=== PATIENT | female | born 1930 | race Caucasian/White ===

== ENCOUNTER 2016-11-25 17:42 | Inpatient (IN) | payer MEDICARE ==
[2016-11-25] MEDS ORDERED: methylPREDNISolone SOD SUCCI 125 MG/2 ML VIAL IV STA (18:05)
[2016-11-25] MEDS ORDERED: IPRATROPIUM-ALBUTEROL 3 ML NEB INHALATION STA (18:05)
--- NOTE | 2016-11-25 18:15 | ED ---
General Adult HPI - General Source: patient, EMS, RN notes reviewed Mode of arrival: EMS Limitations: no limitations <Carlos Corbett - Last Filed: 11/25/16 19:44> <Giovanni Bustamante - Last Filed: 11/25/16 20:08> - General Chief complaint: Shortness of Breath Stated complaint: DESTINEE Time Seen by Provider: 11/25/16 17:44 - History of Present Illness Initial comments: Patient 86-year-old female who presents emergency room today by EMS, the chief complaint of shortness of breath. She does admit that she woke up this morning feeling like this. She states as the day has gone on it seems to have gotten worse. She does admit that EMS did give her a breathing treatment on her way here which did resolve some of the symptoms. She denies any other complaints or associated symptoms. Patient denies any recent fever, chills, shortness of breath, chest pain, back pain, abdominal pain, nausea or vomiting, numbness or tingling, dysuria or hematuria, constipation or diarrhea, headaches or visual changes, or any other complaints. (Carlos Corbett) - Related Data Home Medications Medication Instructions Recorded Confirmed ALPRAZolam [Xanax] 0.5 mg PO DAILY 11/25/16 11/25/16 Carvedilol [Coreg] 6.25 mg PO BID 11/25/16 11/25/16 Furosemide [Lasix] 20 mg PO DAILY 11/25/16 11/25/16 Lisinopril [Zestril] 2.5 mg PO DAILY 11/25/16 11/25/16 Potassium Chloride [Klor-Con 20] 20 meq PO DAILY 11/25/16 11/25/16 Sertraline HCl [Zoloft] 50 mg PO DAILY 11/25/16 11/25/16 Simvastatin [Zocor] 20 mg PO HS 11/25/16 11/25/16 Warfarin [Coumadin] 3 mg PO HS 11/25/16 11/25/16 rOPINIRole HCL [Requip] 0.25 mg PO DAILY 11/25/16 11/25/16 Allergies Allergy/AdvReac Type Severity Reaction Status Date / Time Penicillins AdvReac BURNING Verified 11/25/16 18:32 THROAT Review of Systems ROS Other: All systems not noted in ROS Statement are negative. <Carlos Corbett - Last Filed: 11/25/16 19:44> ROS Other: All systems not noted in ROS Statement are negative. <Giovanni Bustamante - Last Filed: 11/25/16 20:08> ROS Statement: Those systems with pertinent positive or pertinent negative responses have been documented in the HPI. Past Medical History Past Medical History: COPD Additional Past Medical History / Comment(s): pacemaker History of Any Multi-Drug Resistant Organisms: None Reported Additional Past Surgical History / Comment(s): L hip replacement Past Psychological History: No Psychological Hx Reported Smoking Status: Current every day smoker Past Alcohol Use History: Occasional Past Drug Use History: None Reported <Carlos Corbett - Last Filed: 11/25/16 19:44> General Exam Limitations: no limitations <Carlos Corbett - Last Filed: 11/25/16 19:44> General appearance: alert, in no apparent distress, anxious, in distress Head exam: Present: atraumatic, normocephalic, normal inspection Eye exam: Present: normal appearance, PERRL, EOMI. Absent: scleral icterus, conjunctival injection, periorbital swelling ENT exam: Present: normal exam, mucous membranes moist Neck exam: Present: normal inspection. Absent: tenderness, meningismus, lymphadenopathy Respiratory exam: Present: normal lung sounds bilaterally, wheezes, decreased breath sounds, prolonged expiratory. Absent: respiratory distress, rales, rhonchi, stridor Cardiovascular Exam: Present: regular rate, normal rhythm, normal heart sounds. Absent: systolic murmur, diastolic murmur, rubs, gallop, clicks GI/Abdominal exam: Present: soft, normal bowel sounds. Absent: distended, tenderness, guarding, rebound, rigid Extremities exam: Present: normal inspection, full ROM, normal capillary refill. Absent: tenderness, pedal edema, joint swelling, calf tenderness Back exam: Present: normal inspection Neurological exam: Present: alert, oriented X3, CN II-XII intact Psychiatric exam: Present: normal affect, normal mood Skin exam: Present: warm, dry, intact, normal color. Absent: rash <Giovanni Bustamante - Last Filed: 11/25/16 20:08> - General Exam Comments Initial Comments: General: The patient is awake and alert. Eye: Pupils are equal, round and reactive to light, extra-ocular movements are intact. No nystagmus. There is normal conjunctiva bilaterally. No signs of icterus. Ears, nose, mouth and throat: There are moist mucous membranes and no oral lesions. Neck: The neck is supple, there is no tenderness or JVD. Cardiovascular: There is a regular rate and rhythm. No murmur, rub or gallop is appreciated. Respiratory: Decreased breath sounds bilaterally. Mild distress with accessory muscle use. No stridor, rales, or rhonchi. Musculoskeletal: Normal ROM, no tenderness. Strength 5/5. Sensation intact. Pulses equal bilaterally 2+. Neurological: A&O x 3. CN II-XII intact, There are no obvious motor or sensory deficits. Coordination appears grossly intact. Speech is normal. Skin: Skin is warm and dry and no rashes or lesions are noted. Psychiatric: Cooperative, appropriate mood & affect, normal judgment. (Carlos Corbett) Course <Carlos Corbett - Last Filed: 11/25/16 19:44> <Giovanni Bustamante - Last Filed: 11/25/16 20:08> Vital Signs 11/25/16 11/25/16 11/25/16 17:46 17:54 18:19 Temperature 97.0 F L 98.0 F Pulse Rate 70 70 70 Respiratory 16 16 Rate Blood Pressure 152/62 150/60 O2 Sat by Pulse 92 L 90 L Oximetry 11/25/16 11/25/16 11/25/16 18:31 18:58 19:20 Temperature 98.0 F 98.2 F Pulse Rate 72 70 70 Respiratory 18 18 Rate Blood Pressure 150/60 118/63 O2 Sat by Pulse 98 96 Oximetry - Reevaluation(s) Reevaluation #1: 11/25/16 20:08 The patient still remained shortness of breath despite breathing treatments ( Giovanni Bustamante) EKG Findings - EKG Comments: EKG Findings:: EKG performed at 1939: Shows a ventricular paced rhythm with occasional PVC at 73 beats murmur. QRS 136. QT/QTc 476/524. No acute ST changes. <Carlos Corbett - Last Filed: 11/25/16 19:44> Medical Decision Making - Lab Data Result diagrams: 11/25/16 19:10 <Carlos Corbett - Last Filed: 11/25/16 19:44> - Lab Data Result diagrams: 11/25/16 19:10 11/25/16 19:10 - Radiology Data Radiology results: report reviewed (Chest x-rays positive for pneumonia), image reviewed <Giovanni Bustamante - Last Filed: 11/25/16 20:08> - Medical Decision Making 86 female to the ER with significant shortness of breath, active positive for pneumonia, positive fever, positive chest x-ray, white count of 16. Patient will be admitted for IV antibiotics IV resuscitation and monitoring her pulmonary status (Giovanni Bustamante) - Lab Data Lab Results 11/25/16 11/25/16 11/25/16 Range/Units 19:10 19:10 19:10 WBC 15.0 H (3.8-10.6) k/uL RBC 4.16 (3.80-5.40) m/uL Hgb 12.8 (11.4-16.0) gm/dL Hct 40.5 (34.0-46.0) % MCV 97.4 (80.0-100.0) fL MCH 30.8 (25.0-35.0) pg MCHC 31.6 (31.0-37.0) g/dL RDW 14.2 (11.5-15.5) % Plt Count 198 (150-450) k/uL Neutrophils % 86 % Lymphocytes % 6 % Monocytes % 6 % Eosinophils % 0 % Basophils % 0 % Neutrophils # 12.8 H (1.3-7.7) k/uL Lymphocytes # 0.9 L (1.0-4.8) k/uL Monocytes # 0.9 (0-1.0) k/uL Eosinophils # 0.0 (0-0.7) k/uL Basophils # 0.0 (0-0.2) k/uL PT (9.0-12.0) sec INR (<1.1) APTT (22.0-30.0) sec Sodium 137 (137-145) mmol/L Potassium 4.3 (3.5-5.1) mmol/L Chloride 103 (98-107) mmol/L Carbon Dioxide 26 (22-30) mmol/L Anion Gap 8 mmol/L BUN 24 H (7-17) mg/dL Creatinine 0.75 (0.52-1.04) mg/dL Est GFR (MDRD) Af Amer >60 (>60 ml/min/1.73 sqM) Est GFR (MDRD) Non-Af >60 (>60 ml/min/1.73 sqM) Glucose 125 H (74-99) mg/dL Calcium 8.8 (8.4-10.2) mg/dL Magnesium 2.1 (1.6-2.3) mg/dL Total Bilirubin 0.7 (0.2-1.3) mg/dL AST 34 (14-36) U/L ALT 37 (9-52) U/L Alkaline Phosphatase 81 (38-126) U/L Total Creatine Kinase 54 (30-135) U/L Total Protein 6.2 L (6.3-8.2) g/dL Albumin 3.5 (3.5-5.0) g/dL 11/25/16 Range/Units 19:10 WBC (3.8-10.6) k/uL RBC (3.80-5.40) m/uL Hgb (11.4-16.0) gm/dL Hct (34.0-46.0) % MCV (80.0-100.0) fL MCH (25.0-35.0) pg MCHC (31.0-37.0) g/dL RDW (11.5-15.5) % Plt Count (150-450) k/uL Neutrophils % % Lymphocytes % % Monocytes % % Eosinophils % % Basophils % % Neutrophils # (1.3-7.7) k/uL Lymphocytes # (1.0-4.8) k/uL Monocytes # (0-1.0) k/uL Eosinophils # (0-0.7) k/uL Basophils # (0-0.2) k/uL PT 73.3 H (9.0-12.0) sec INR 7.1 H* (<1.1) APTT 37.1 H (22.0-30.0) sec Sodium (137-145) mmol/L Potassium (3.5-5.1) mmol/L Chloride (98-107) mmol/L Carbon Dioxide (22-30) mmol/L Anion Gap mmol/L BUN (7-17) mg/dL Creatinine (0.52-1.04) mg/dL Est GFR (MDRD) Af Amer (>60 ml/min/1.73 sqM) Est GFR (MDRD) Non-Af (>60 ml/min/1.73 sqM) Glucose (74-99) mg/dL Calcium (8.4-10.2) mg/dL Magnesium (1.6-2.3) mg/dL Total Bilirubin (0.2-1.3) mg/dL AST (14-36) U/L ALT (9-52) U/L Alkaline Phosphatase (38-126) U/L Total Creatine Kinase (30-135) U/L Total Protein (6.3-8.2) g/dL Albumin (3.5-5.0) g/dL Critical Care Time Critical Care Time: Yes Total Critical Care Time: 31 <Giovanni Bustamante - Last Filed: 11/25/16 20:08> Disposition <Carlos Corbett - Last Filed: 11/25/16 19:44> <Giovanni Bustamante - Last Filed: 11/25/16 20:08> Clinical Impression: Community acquired pneumonia, Sepsis Disposition: ADMITTED IP TO THIS [facility] Condition: Poor Referrals: William Delgadillo MD [Primary Care Provider] - 1-2 days
--- NOTE | 2016-11-25 19:18 | XR ---
EXAMINATION TYPE: XR chest 2V DATE OF EXAM: 11/25/2016 6:59 PM COMPARISON: NONE HISTORY: Chest pressure TECHNIQUE: Frontal and lateral views of the chest are obtained. FINDINGS: Heart is enlarged. There is apparent aortic valve prosthesis. There is mild pulmonary beatrice estion. There is a left axillary pacemaker with the lead tips in the right ventricle. There are chest leads. There is minimal fluid in the fissures. Bony thorax is intact. IMPRESSION: Mild congestive heart failure. Moderately severe cardiomegaly.
[2016-11-25 19:28] LABS: Basophils % (A) 0 %; CH 30.7; CHCM 31.7; Eosinophils % (A) 0 %; HCT 40.5 % (34.0-46.0); HDW 2.52; HGB 12.8 gm/dL (11.4-16.0); Luc # (Auto) 0.39; Luc % (Auto) 3; Lymphocytes # (A) 0.9 k/uL (1.0-4.8); Lymphocytes % (A) 6 %; MCH 30.8 pg (25.0-35.0); MCHC 31.6 g/dL (31.0-37.0); MCV 97.4 fL (80.0-100.0); Mean Platelet Volume 7.7; Monocytes # (A) 0.9 k/uL (0-1.0); Monocytes % (A) 6 %; Neutrophils # (A) 12.8 k/uL (1.3-7.7); Neutrophils % (A) 86 %; RBC 4.16 m/uL (3.80-5.40); RDW 14.2 % (11.5-15.5); WBC (Perox) 14.48
[2016-11-25 19:37] LABS: ALT 37 U/L (9-52); AST 34 U/L (14-36); Alkaline Phosphatase 81 U/L (38-126); Anion Gap 8 mmol/L; Blood Urea Nitrogen 24 mg/dL (7-17); Calcium 8.8 mg/dL (8.4-10.2); Carbon Dioxide 26 mmol/L (22-30); Chloride 103 mmol/L (98-107); Glucose 125 mg/dL (74-99); Magnesium 2.1 mg/dL (1.6-2.3); Non-African American GFR(MDRD) >60 (>60 ml/min/1.73 sqM); Potassium 4.3 mmol/L (3.5-5.1); Sodium 137 mmol/L (137-145); Total Bilirubin 0.7 mg/dL (0.2-1.3); Total Protein 6.2 g/dL (6.3-8.2)
[2016-11-25 19:41] LABS: Partial Thromboplastin Time 37.1 sec (22.0-30.0)
[2016-11-25 19:42] LABS: Prothrombin Time 73.3 sec (9.0-12.0)
[2016-11-25] MEDS ORDERED: PNEUMONIA PROTOCOL UTILIZED 1 EACH MISC PO PRN (19:57)
[2016-11-25] MEDS ORDERED: LEVOFLOXACIN 750MG-D5W PMX 750 MG in DEXTROSE/WATER 1 150ML.BAG IVPB STA (19:57)
[2016-11-25] MEDS ORDERED: IPRATROPIUM-ALBUTEROL 3 ML NEB INHALATION PRN (19:57)
[2016-11-25] MEDS ORDERED: SODIUM CHLORIDE 0.9% 1,000 ML IV ONE (19:57)
[2016-11-25 20:01] LABS: INR 7.1 (<1.1)
[2016-11-25 20:04] LABS: Creatine Kinase MB 2.1 ng/mL (0.0-2.4)
[2016-11-25 20:13] LABS: Troponin I 0.159 ng/mL (0.000-0.034)
[2016-11-25] MEDS ORDERED: WARFARIN 3 MG TAB PO SCH (21:00)
[2016-11-25] MEDS: ATORVASTATIN 10 MG TAB PO SCH (23:18)
[2016-11-25] MEDS: CARVEDILOL 6.25 MG TAB PO SCH (23:18)
[2016-11-25] MEDS: ALPRAZolam 0.5 MG TAB PO SCH (23:18)
[2016-11-26 02:51] LABS: Troponin I 0.156 ng/mL (0.000-0.034)
[2016-11-26 07:06] LABS: Cholesterol 130 mg/dL (<200); HDL Cholesterol 48 mg/dL (40-60); Triglycerides 140 mg/dL (<150)
[2016-11-26 07:49] LABS: Creatine Kinase MB 2.4 ng/mL (0.0-2.4)
[2016-11-26 08:14] LABS: Troponin I 0.147 ng/mL (0.000-0.034)
[2016-11-26] MEDS ORDERED: ALPRAZolam 0.5 MG TAB PO SCH (09:00)
[2016-11-26] MEDS ORDERED: FUROSEMIDE 20 MG TAB PO SCH (09:00)
[2016-11-26] MEDS: POTASSIUM CHLORIDE ER 20 MEQ TAB.ER PO SCH (09:17)
[2016-11-26] MEDS: LISINOPRIL 2.5 MG TAB PO SCH (09:17)
[2016-11-26] MEDS: CARVEDILOL 6.25 MG TAB PO SCH ×2 (09:17→19:54)
[2016-11-26] MEDS: SERTRALINE 50 MG TAB PO SCH (09:18)
--- NOTE | 2016-11-26 10:31 | XR ---
EXAMINATION TYPE: XR chest 2V DATE OF EXAM: 11/26/2016 9:52 AM COMPARISON: NONE INDICATION: Pneumonia TECHNIQUE: Single frontal view of the chest is obtained. FINDINGS: The heart size is enlarged. The pulmonary vasculature is prominent. Diffuse increased lung opacity is present likely on the basis of alveolar infiltrate. Clinical correl ation recommended. IMPRESSION: 1. Correlate for developing congestive heart.
[2016-11-26] MEDS: ACETAMINOPHEN TAB 325 MG TAB PO PRN ×2 (11:47→16:41)
[2016-11-26 14:29] LABS: INR 4.9 (<1.1)
[2016-11-26] MEDS ORDERED: HYDROcodone/APAP 5-325MG 1 EACH TAB PO PRN (15:00)
[2016-11-26] MEDS ORDERED: TEMAZEPAM 15 MG CAP PO PRN (15:00)
[2016-11-26] MEDS: FUROSEMIDE 10 MG/ML 4 ML VIAL IV SCH (15:41)
--- NOTE | 2016-11-26 18:42 | HP ---
DATE OF ADMISSION: 11/25/2016 CHIEF COMPLAINT: Shortness of breath and cough. HISTORY OF PRESENT ILLNESS: This 86-year-old woman with a past medical history of COPD, pacemaker, eczema, cardiac valve replacement, pacemaker, being followed by Dr. Delgadillo in the outpatient setting, was having complaints of progressive shortness of breath over the past several days. Because of increasing complaints, the patient came to [facility] and was admitted for further evaluation and treatment. The shortness of breath has gotten worse. EMS gave her a breathing treatment which improved her symptoms. There is no history of any hematochezia, melena. No history of headache, loss of consciousness or seizures. No chest pain, palpitations. Prior to admission white count was elevated to 15 and INR 1.1, indicating some amount of coagulopathy. Troponin elevated up to 0.159 also. The patient was found to be febrile. PAST MEDICAL HISTORY: History of COPD, history of pacemaker, cardiac valve replacement, history of nicotine dependence. Home medications are: 1. Accupril 0.25 p.o. daily. 2. Coumadin 3 mg at bedtime. 3. Zocor 20 mg at bedtime. 4. Zoloft 50 mg daily. 5. Klor-Con 20 mg p.o. daily. 6. Zestril 2.1 mg daily. 7. Lasix 20 mg p.o. daily. 8. Coreg 0.5 mg p.o. daily. 9. Xanax 0.5 daily. ALLERGIES: PENICILLIN. FAMILY HISTORY: History of cancer in the family. SOCIAL HISTORY: History of smoking. Occasional alcohol intake. REVIEW OF SYSTEMS: ENT: No diminished hearing or diminished vision. CARDIOVASCULAR: As mentioned earlier. GI: No nausea, vomiting. : No dysuria or hematuria. NERVOUS SYSTEM: No numbness or weakness. ALLERGY/IMMUNOLOGY: No asthma or hayfever. MUSCULOSKELETAL: As mentioned earlier. HEMATOLOGY: No history of anemia. ENDOCRINE: No history of diabetes or hypothyroidism. CONSTITUTIONAL: As mentioned. DERMATOLOGY: Negative. PSYCHIATRY: As mentioned. PHYSICAL EXAM: Alert, oriented x3. VITAL SIGNS: Pulse 77, blood pressure 140/67, respirations 18, temperature 97.4, pulse ox 94% on 2 L. HEENT: Conjunctivae normal. Oral mucosa moist. NECK: JVD at the root of the neck. CARDIOVASCULAR: S1 and S2. Ejection systolic murmur. LUNGS: Breath sounds diminished at the bases. Few scattered rhonchi and basilar crackles. ABDOMEN: Soft, nontender. No mass palpable. EXTREMITIES: Legs, minimal edema bilaterally. NERVOUS SYSTEM: Higher functions as mentioned. Moves all limbs equally. No focal motor or sensory deficits. LYMPHATIC: No lymph nodes palpable in the neck, groin, axillae. SKIN: No ulcers or rashes. Hyperpigmentation of both lower leg areas. JOINTS: No acute deformities. LABORATORY DATA: WBC 15, hemoglobin 12.8, INR 7.1, glucose 125, troponin 0.015. ASSESSMENT: 1. Shortness of breath, possibly multifactorial with congestive heart failure acute exacerbation as well as chronic obstructive pulmonary disease acute exacerbation. 2. Acute purulent tracheobronchitis. 3. Increased WBC, present on admission. 4. No evidence of pneumonia. 5. Coumadin coagulopathy, present on admission. 6. Increased random blood sugar. 7. Troponin 0.159, indeterminate. 8. Continued ongoing nicotine dependence. 9. History of chronic obstructive pulmonary disease. 10. History of pacemaker. 11. History of cardiac valve replacement. 12. 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 13. NO CODE, NO CPR, NO VENT. RECOMMENDATIONS/DISCUSSION: This 86-year-old patient presented with multiple complex medical issues. We will monitor the patient closely. Continue the current medications and current symptomatic treatment. Empiric antibiotics and bronchodilators initiated. I would add IV diuretics and monitor fluids and electrolytes closely. Fluid restriction. Otherwise cardiac consultation and 2D echo with Doppler. Guarded prognosis because of multiple complex medical issues. See orders for details. Empiric antibiotics also.
[2016-11-26] MEDS: ATORVASTATIN 10 MG TAB PO SCH (19:54)
[2016-11-26] MEDS ORDERED: LEVOFLOXACIN 750 MG TAB PO SCH (21:00)
[2016-11-26] MEDS: ALPRAZolam 0.5 MG TAB PO SCH (21:41)
[2016-11-27] MEDS: FUROSEMIDE 10 MG/ML 4 ML VIAL IV SCH ×2 (00:35→09:38)
[2016-11-27] MEDS: PANTOPRAZOLE 40 MG TABLET PO SCH (06:21)
[2016-11-27 07:09] LABS: Basophils % (A) 0 %; CH 30.6; CHCM 31.9; Eosinophils # (A) 0.1 k/uL (0-0.7); Eosinophils % (A) 1 %; HCT 38.5 % (34.0-46.0); HDW 2.51; HGB 12.4 gm/dL (11.4-16.0); Luc # (Auto) 0.47; Luc % (Auto) 4; Lymphocytes # (A) 0.9 k/uL (1.0-4.8); Lymphocytes % (A) 9 %; MCH 31.1 pg (25.0-35.0); MCHC 32.2 g/dL (31.0-37.0); MCV 96.5 fL (80.0-100.0); Mean Platelet Volume 7.3; Monocytes # (A) 0.8 k/uL (0-1.0); Monocytes % (A) 8 %; Neutrophils # (A) 8.3 k/uL (1.3-7.7); Neutrophils % (A) 78 %; RBC 3.99 m/uL (3.80-5.40); RDW 13.9 % (11.5-15.5); WBC 10.7 k/uL (3.8-10.6); WBC (Perox) 11.16
[2016-11-27 07:18] LABS: Anion Gap 5 mmol/L; Blood Urea Nitrogen 30 mg/dL (7-17); Calcium 8.8 mg/dL (8.4-10.2); Carbon Dioxide 35 mmol/L (22-30); Chloride 100 mmol/L (98-107); Glucose 84 mg/dL (74-99); Non-African American GFR(MDRD) 55 (>60 ml/min/1.73 sqM); Potassium 3.9 mmol/L (3.5-5.1); Sodium 140 mmol/L (137-145)
[2016-11-27 07:28] LABS: INR 2.4 (<1.1)
[2016-11-27] MEDS: SERTRALINE 50 MG TAB PO SCH (09:07)
[2016-11-27] MEDS: POTASSIUM CHLORIDE ER 20 MEQ TAB.ER PO SCH (09:07)
[2016-11-27] MEDS: ACETAMINOPHEN TAB 325 MG TAB PO PRN (09:09)
[2016-11-27] MEDS: CARVEDILOL 6.25 MG TAB PO SCH ×2 (09:14→22:18)
[2016-11-27] MEDS: LISINOPRIL 2.5 MG TAB PO SCH (09:14)
--- NOTE | 2016-11-27 09:35 | P.CRDCN ---
History of Present Illness Consult date: 11/27/16 History of present illness: This is a 86-year-old female with history of of COPD cardiomyopathy status post biventricular pacemaker implantation being followed by Dr. Alvarez and also Dr. Delgadillo is admitted to the hospital with complaints of increasing shortness of breath. Patient denied any chest pain. There doesn't seem to be any significant edema. All pedal swelling. Patient is also has COPD. Apparently treatment with the inhaler and breathing treatment helped her symptoms. No complaints of palpitations. Her INR was high on admission. Her troponins were mildly elevated but the pattern of elevation is not consistent with acute coronary syndrome. Patient has responded well to the current treatment and feeling better. Her blood pressures running low. I'm going to discontinue IV Lasix and put her on by mouth Lasix and continue the rest of the medication. Patient has follow-up with Dr. RENETTA Alvarez in the near future. Review of Systems REVIEW OF SYSTEMS: CONSTITUTIONAL:. Patient is doing well. No complaints of fever or chills EYES: Denies diplopia, blurring of vision EARS, NOSE, MOUTH, THROAT: Denies headaches, denies sore throat. CARDIOVASCULAR: As per HPI RESPIRATORY: As per HPI GASTROINTESTINAL: Denies change in appetite, denies abdominal pain, denies diarrhea GENITOURINARY: Denies hematuria, denies infections. MUSKULOSKELETAL: Denies pain, denies swelling. Denies any cramps or claudication INTEGUMENTARY: Denies rash, has eczematous changes of the both feet NEUROLOGICAL: Denies focal weakness, or visual disturbance. Denies any dizziness or syncope PSYCHIATRIC: Denies anxiety, denies depression. HEMATOLOGIC/LYMPHATIC: Denies any bleeding, denies enlarged lymph nodes. Past Medical History Past Medical History: COPD Additional Past Medical History / Comment(s): pacemaker, ezcema History of Any Multi-Drug Resistant Organisms: None Reported Past Surgical History: Cardiac Valve Replacement, Pacemaker Additional Past Surgical History / Comment(s): L hip replacement Past Anesthesia/Blood Transfusion Reactions: No Reported Reaction Type of Cardiac Device: Permanent Pacemaker Device Placement Date:: 2013 Past Psychological History: No Psychological Hx Reported Smoking Status: Current every day smoker Past Alcohol Use History: Occasional Past Drug Use History: None Reported - Past Family History Son(s) Family Medical History: Cancer Additional Family Medical History / Comment(s): son from lung cancer Father Family Medical History: No Reported History Mother Family Medical History: No Reported History Medications and Allergies Home Medications Medication Instructions Recorded Confirmed Type ALPRAZolam [Xanax] 0.5 mg PO DAILY 11/25/16 11/25/16 History Carvedilol [Coreg] 6.25 mg PO BID 11/25/16 11/25/16 History Furosemide [Lasix] 20 mg PO DAILY 11/25/16 11/25/16 History Lisinopril [Zestril] 2.5 mg PO DAILY 11/25/16 11/25/16 History Potassium Chloride [Klor-Con 20] 20 meq PO DAILY 11/25/16 11/25/16 History Sertraline HCl [Zoloft] 50 mg PO DAILY 11/25/16 11/25/16 History Simvastatin [Zocor] 20 mg PO HS 11/25/16 11/25/16 History Warfarin [Coumadin] 3 mg PO HS 11/25/16 11/25/16 History rOPINIRole HCL [Requip] 0.25 mg PO DAILY 11/25/16 11/25/16 History Allergies Allergy/AdvReac Type Severity Reaction Status Date / Time Penicillins AdvReac BURNING Verified 11/25/16 22:42 THROAT Physical Exam Vitals: Vital Signs Temp Pulse Pulse Resp BP Pulse Ox 11/27/16 09:15 97.4 F L 71 18 94/54 96 11/27/16 03:41 90 17 11/27/16 03:40 97.3 F L 90 17 126/66 98 11/27/16 00:00 97.1 F L 70 16 103/62 98 11/26/16 20:45 97 11/26/16 20:00 97.6 F 69 18 110/48 97 11/26/16 15:41 96.9 F L 70 18 112/75 96 11/26/16 15:31 78 11/26/16 15:21 78 11/26/16 11:47 97 F L 72 18 126/65 96 Intake and Output 11/26/16 11/27/16 11/27/16 22:59 06:59 14:59 Intake Total 20 40 Output Total 900 1050 Balance -880 -1010 Intake: IV 20 40 Sodium Chloride 0.9% 1, 20 40 000 ml @ 20 mls/hr IV . Q24H ONE Rx#:[id number] Output: Urine 900 1050 Other: Voiding Method Bedside Commode Bedside Commode Bedside Commode # Voids 2 1 Weight 71 kg GENERAL EXAM: Patient is alert and oriented and doesn't appear to be in any acute distress HEENT: Normocephalic. Normal reaction of pupils, equal size, normal range of extraocular motion. No erythema or exudates in the throat. NECK: No masses, no nuchal rigidity. CHEST: No chest wall deformity. LUNGS: Equal air entry with no crackles or wheeze. Diminished breath sounds HEART: S1 and S2 normal with no audible mumurs or gallops. Regular rhythm, ABDOMEN: No hepatosplenomegaly, normal bowel sounds, no guarding or rigidity. SKIN: No rashes CENTRAL NERVOUS SYSTEM: No focal deficits. EXTREMITIES: No cyanosis, clubbing or edema. Results 11/27/16 06:25 11/27/16 06:25 Coagulation 11/26/16 11/27/16 Range/Units 06:30 06:25 PT 49.0 H 23.0 H (9.0-12.0) sec CBC 11/27/16 Range/Units 06:25 WBC 10.7 H (3.8-10.6) k/uL RBC 3.99 (3.80-5.40) m/uL Hgb 12.4 (11.4-16.0) gm/dL Hct 38.5 (34.0-46.0) % Plt Count 178 (150-450) k/uL Comprehensive Metabolic Panel 11/27/16 Range/Units 06:25 Sodium 140 (137-145) mmol/L Potassium 3.9 (3.5-5.1) mmol/L Chloride 100 (98-107) mmol/L Carbon Dioxide 35 H (22-30) mmol/L BUN 30 H (7-17) mg/dL Creatinine 0.97 (0.52-1.04) mg/dL Glucose 84 (74-99) mg/dL Calcium 8.8 (8.4-10.2) mg/dL Current Medications Generic Name Dose Route Start Last Admin Trade Name Freq PRN Reason Stop Dose Admin Acetaminophen 650 mg 11/26/16 11:40 11/27/16 09:09 Tylenol Tab PO 650 mg Q4HR PRN Administration Fever and/ or MILD Pain Hydrocodone Bitart/Acetaminophen 1 each 11/26/16 15:00 [place] 5-325 PO Q6HR PRN Pain Albuterol/Ipratropium 3 ml 11/25/16 19:57 11/26/16 15:21 Duoneb 0.5 Mg-3 Mg/3 Ml Soln INHALATION 3 ml RT-Q4H PRN Administration shortness of breath Alprazolam 0.5 mg 11/25/16 22:47 11/26/16 21:41 Xanax PO 0.5 mg HS BITA Administration Atorvastatin Calcium 10 mg 11/25/16 21:00 11/26/16 19:54 Lipitor PO 10 mg HS BITA Administration Carvedilol 6.25 mg 11/25/16 21:00 11/27/16 09:14 Coreg PO Not Given BID BITA Furosemide 40 mg 11/27/16 16:00 Lasix PO BID@0900,1600 BITA Levofloxacin 750 mg 11/26/16 21:00 11/26/16 19:54 Levaquin PO 750 mg DAILY@2100 BITA Administration Lisinopril 2.5 mg 11/26/16 09:00 11/27/16 09:14 Zestril PO Not Given DAILY BITA Miscellaneous Information 1 each 11/25/16 19:57 Pneumonia Protocol Utilized PO ONCE PRN Per Protocol Pantoprazole Sodium 40 mg 11/27/16 07:30 11/27/16 06:21 Protonix PO 40 mg [id number] BITA Administration Potassium Chloride 20 meq 11/26/16 09:00 11/27/16 09:07 K-Dur 20 PO 20 meq DAILY BITA Administration Ropinirole HCl 0.25 mg 11/26/16 09:00 11/27/16 09:07 Requip PO 0.25 mg DAILY BITA Administration Sertraline HCl 50 mg 11/26/16 09:00 11/27/16 09:07 Zoloft PO 50 mg DAILY BITA Administration Temazepam 15 mg 11/26/16 15:00 Restoril PO HS PRN Insomnia Intake and Output 11/26/16 11/27/16 11/27/16 22:59 06:59 14:59 Intake Total 20 40 Output Total 900 1050 Balance -880 -1010 Intake: IV 20 40 Sodium Chloride 0.9% 1, 20 40 000 ml @ 20 mls/hr IV . Q24H ONE Rx#:[id number] Output: Urine 900 1050 Other: Voiding Method Bedside Commode Bedside Commode Bedside Commode # Voids 2 1 Weight 71 kg 11/27/16 06:25 11/27/16 06:25 EKG Interpretations (text) Biventricular pacemaker rhythm Assessment and Plan (1) Acute on chronic systolic CHF (congestive heart failure) Status: Acute (2) Community acquired pneumonia Status: Acute (3) Cardiomyopathy Status: Acute (4) COPD (chronic obstructive pulmonary disease) Status: Acute (5) History of permanent cardiac pacemaker placement Status: Acute (6) Valvular heart disease Status: Acute Plan: Patient seemed to be more stable. We'll discontinue IV Lasix and started on by mouth Lasix. Rest of the medication to be continued. Increase activity as tolerated. Possible discharge within next 24-48 hours. Follow-up with Dr. RENETTA Alvarez upon discharge.
[2016-11-27] MEDS ORDERED: diphenhydrAMINE 25 MG CAP PO PRN (12:45)
[2016-11-27] MEDS: FUROSEMIDE 40 MG TAB PO SCH (16:03)
[2016-11-27] MEDS: ATORVASTATIN 10 MG TAB PO SCH (22:18)
[2016-11-27] MEDS: ALPRAZolam 0.5 MG TAB PO SCH (22:18)
[2016-11-28 06:21] LABS: Basophils % (A) 0 %; CH 30.5; CHCM 31.1; Eosinophils # (A) 0.2 k/uL (0-0.7); Eosinophils % (A) 2 %; HCT 37.6 % (34.0-46.0); HDW 2.39; HGB 11.7 gm/dL (11.4-16.0); Hypochromasia Slight; Luc # (Auto) 0.29; Luc % (Auto) 3; Lymphocytes # (A) 0.7 k/uL (1.0-4.8); Lymphocytes % (A) 8 %; MCH 30.8 pg (25.0-35.0); MCHC 31.3 g/dL (31.0-37.0); MCV 98.7 fL (80.0-100.0); Mean Platelet Volume 7.6; Monocytes # (A) 0.6 k/uL (0-1.0); Monocytes % (A) 7 %; Neutrophils # (A) 7.8 k/uL (1.3-7.7); Neutrophils % (A) 80 %; RBC 3.81 m/uL (3.80-5.40); WBC 9.7 k/uL (3.8-10.6); WBC (Perox) 10.03
[2016-11-28 06:28] LABS: INR 1.5 (<1.1); Prothrombin Time 14.7 sec (9.0-12.0)
[2016-11-28 06:33] LABS: Anion Gap 5 mmol/L; Blood Urea Nitrogen 29 mg/dL (7-17); Calcium 8.5 mg/dL (8.4-10.2); Carbon Dioxide 34 mmol/L (22-30); Chloride 103 mmol/L (98-107); Glucose 95 mg/dL (74-99); Non-African American GFR(MDRD) >60 (>60 ml/min/1.73 sqM); Potassium 3.9 mmol/L (3.5-5.1); Sodium 142 mmol/L (137-145)
[2016-11-28] MEDS: LISINOPRIL 2.5 MG TAB PO SCH (09:00)
[2016-11-28] MEDS: PANTOPRAZOLE 40 MG TABLET PO SCH (09:20)
[2016-11-28] MEDS: POTASSIUM CHLORIDE ER 20 MEQ TAB.ER PO SCH (09:20)
[2016-11-28] MEDS: SERTRALINE 50 MG TAB PO SCH (09:21)
[2016-11-28] MEDS: FUROSEMIDE 40 MG TAB PO SCH (09:21)
[2016-11-28] MEDS: CARVEDILOL 6.25 MG TAB PO SCH (09:25)
--- NOTE | 2016-11-28 09:34 | PN ---
DATE OF SERVICE: 11/27/2016 This 86-year-old woman who was admitted with shortness of breath, possibly had CHF, acute exacerbation. The patient is on diuretics. The patient is feeling much better. Cardiology is following the patient closely as well. Please note, the patient also has COPD as well. PAST MEDICAL HISTORY: Reviewed. REVIEW OF SYSTEMS: CARDIOVASCULAR: No angina or palpitations. RESPIRATORY: As mentioned earlier. GI: As mentioned earlier. : No dysuria. NERVOUS SYSTEM: No numbness or weakness. Current medications are reviewed and include: 1. Tylenol 650 every 4 hours p.r.n.. 2. Providence 5 mg every 6 hours. 3. DuoNeb q.i.d. and p.r.n. 4. Xanax 0.2 at bedtime. 5. Lipitor 10 mg daily. 6. Coreg 6.25 mg p.o. daily. 7. Benadryl 25 mg daily. 8. Lasix 40 mg p.o. b.i.d. 9. Levaquin 750 every 48 hours. 10. Protonix. 12. Zoloft. PHYSICAL EXAMINATION: Oriented x3. Pulse 73, blood pressure 123/69, respirations 18, temperature 97, pulse ox 97% on 2 L. HEENT: Conjunctivae normal. NECK: No JVD. CARDIOVASCULAR SYSTEM: S1, S2 muffled at the bases. Few scattered rhonchi and crackles. ABDOMEN: Soft, nontender. EXTREMITIES: Legs no edema. NERVOUS SYSTEM: No focal deficits. LABS: WBC 10.7, hemoglobin 12.4, INR 2.4. Troponin 0.147. ASSESSMENT: 1. Shortness of breath, possibly multifactorial with congestive heart failure acute exacerbation as well as chronic obstructive pulmonary disease, acute exacerbation. 2. Acute purulent tracheobronchitis. 3. Increased white count, present on admission. No evidence of pneumonia. 4. Coumadin coagulopathy present on admission. 5. Increased random blood sugar. 6. Troponin 0.149, indeterminate. 7. Continued ongoing nicotine dependence. 8. History of chronic obstructive pulmonary disease. 9. History of pacemaker. 10. History of cardiac valve replacement. 11. Left hip replacement. 12. Degenerative joint disease. 13. NO CODE, NO CPR, NO VENTILATOR. RECOMMENDATIONS AND DISCUSSION: Recommend to continue the current medications, continue symptomatic treatment. Otherwise, at this time I would recommend tapering down the diuretics, continue with the rest of the medications including bronchodilators. Repeat chest x-ray has been done, which I reviewed personally, which showed some cardiomegaly and some improvement in the aeration also. We will continue to monitor. Guarded prognosis. Further recommendations to follow. MTDD
--- NOTE | 2016-11-28 11:46 | CDI ---
In responding to this query, please exercise your independent professional judgment. The [facility] Coding Staff and Clinical Documentation Specialists appreciate your assistance in clarifying documentation, maintaining compliance with coding guidelines, accurately documenting patients condition and capturing severity of illness. The fact that a question is asked does not imply that any particular answer is desired or expected. Communication forms are a method of clarifying documentation and are not made part of the Legal Health Record. Thank you in advance for your clarification. Last Revision, June 2015 Tejinder Irwin [address] [place] [address] Documentation Clarification Form Date: 11/28/2016 11:37:00 AM From: Berny Torrez, RN, BSN, CDI Admit Date: 11/25/2016 8:05:00 PM Patient Name: Julisa Hicks Visit Number: [id number] Dr. Cari Field: "Cardiomyopathy" is documented in your initial consult. History/Risk Factors: 86 yo female with a history of COPD, cardiac valve replacement, nicotine dependence and PPM presents with acute CHF/COPD exacerbation. Clinical indicators: Patient C/O: "Shortness of Breath for the last several days" CXR: mild CHF, moderately severe cardiomegaly Echocardiogram: not ordered/done on this admission Treatment: IV Lasix, Zestril, Coreg In your professional opinion; can you please clarify the type of cardiomyopathy and underlying cause if known? Congenital Dilated Hypertrophic Ischemic Secondary, please indicate underlying cause if known Unable to determine Other, please specify Please document in your progress notes and discharge summary in order to capture severity of illness and risk of mortality. Include clinical findings that support your diagnosis. FYI: Press F11 to launch patient chart Place X here if this finding has no clinical significance, is not applicable or if you are not able to provide any additional documentation. NICOLE
[2016-11-28 11:57] VITALS: RESP 18
[2016-11-28] MEDS ORDERED: LISINOPRIL 2.5 MG TAB PO SCH (12:00)
[2016-11-28 12:05] VITALS: BP 96/55; PULSE 70; TEMP 97.7
--- NOTE | 2016-11-28 13:07 | P.PN ---
Subjective Principal diagnosis: Shortness of breath This is a 86-year-old female with history of of COPD cardiomyopathy status post biventricular pacemaker implantation being followed by Dr. Alvarez and also Dr. Delgadillo is admitted to the hospital with complaints of increasing shortness of breath. Patient denied any chest pain. There doesn't seem to be any significant edema.Her INR was high on admission. Her troponins were mildly elevated but the pattern of elevation is not consistent with acute coronary syndrome. Patient has responded well to the current treatment and feeling better. Her blood pressures running low, medication adjustments have been made yesterday and patient was changed over to oral diuretics. We will decrease her Coreg to 3.125 mg by mouth twice a day. Patient is asymptomatic with her blood pressure in the 90s. Objective - Vital Signs Vital signs: Vital Signs Temp 97.7 F 11/28/16 11:57 Pulse 70 11/28/16 11:57 Resp 18 11/28/16 11:57 BP 96/55 11/28/16 11:57 Pulse Ox 91 L 11/28/16 11:57 Intake & Output 11/27/16 11/28/16 11/28/16 18:59 06:59 18:59 Intake Total 600 590 Output Total 300 650 200 Balance 300 -650 390 Weight 70.3 kg Intake: IV 10 Invasive Line 1 10 Oral 600 580 Output: Urine 300 650 200 Other: Voiding Method Bedside Commode # Voids 1 1 1 # Bowel Movements 0 - Exam PHYSICAL EXAMINATION: HEENT: Head is atraumatic, normocephalic. Pupils equal, round. Neck is supple. There is no elevated jugular venous pressure. HEART EXAMINATION: Heart S1, S2 normal. No murmur or gallop heard. CHEST EXAMINATION: Lungs are clear to auscultation and precussion. No chest wall tenderness is noted on palpation or with deep breathing. ABDOMEN: Soft, nontender. Bowel sounds are heard. No organomegaly noted. EXTREMITIES: 2+ peripheral pulses with no evidence of peripheral edema and no calf tenderness noted. NEUROLOGIC patient is awake, alert and oriented -3. . - Labs CBC & Chem 7: 11/28/16 06:00 11/28/16 06:00 Labs: Abnormal Lab Results - Last 24 Hours (Table) 11/28/16 11/28/16 11/28/16 Range/Units 06:00 06:00 06:00 Plt Count 149 L (150-450) k/uL Neutrophils # 7.8 H (1.3-7.7) k/uL Lymphocytes # 0.7 L (1.0-4.8) k/uL PT 14.7 H (9.0-12.0) sec Carbon Dioxide 34 H (22-30) mmol/L BUN 29 H (7-17) mg/dL Assessment and Plan (1) Acute on chronic systolic CHF (congestive heart failure) Status: Acute (2) COPD (chronic obstructive pulmonary disease) Status: Acute (3) Cardiomyopathy Status: Acute (4) Community acquired pneumonia Status: Acute (5) History of permanent cardiac pacemaker placement Status: Acute Plan: From cardiology's perspective, we will decrease her current dose according to 3.125 mg by mouth twice a day. She may be able to be discharged home once cleared by her primary, a follow-up appointment will be made with Dr. Isabelle Alvarez in the office post discharge. DNP note has been reviewed, I agree with a documented findings and plan of care. Patient was seen and examined.
[2016-11-28] MEDS ORDERED: CARVEDILOL 3.125 MG TAB PO SCH (17:30)
[2016-11-28] MEDS ORDERED: LEVOFLOXACIN 750 MG TAB PO SCH (21:00)
--- NOTE | 2016-11-29 10:08 | DS ---
DATE OF ADMISSION: 11/25/2016 DATE OF DISCHARGE: 11/28/2016 FINAL DIAGNOSES: 1. Shortness of breath possibly multifactorial with congestive heart failure, acute exacerbation, as well as chronic obstructive pulmonary disease acute exacerbation. 2. Acute purulent tracheobronchitis. 3. Increased WBC, present on admission. No evidence of pneumonia. 4. Coumadin coagulopathy, present on admission. 5. Increased random blood sugar. 6. Coumadin monitoring. 7. Troponin 0.149, indeterminate. 8. Continued ongoing nicotine dependence. 9. History chronic obstructive pulmonary disease. 10. History of pacemaker. 11. History of cardiac valve replacement. 12. Left hip replacement history. 13. History of degenerative joint disease. 14. NO CODE, NO CPR, NO VENTILATOR. DISCHARGE DISPOSITION: The patient will be discharged in stable condition with guarded prognosis. Total time taken 35 minutes. HISTORY OF PRESENT ILLNESS: This 86-year-old woman with a past medical history of multiple medical problems was admitted with congestive heart failure acute exacerbation and shortness of breath. The patient was monitored closely. The patient was given IV diuretics. Coumadin was 7.1. INR improved to 1.5. Cardiology saw the patient. On exam, vitals are stable. CARDIOVASCULAR SYSTEM: S1, S2 muffled. RESPIRATORY: A few rhonchi. ABDOMEN: Soft. NERVOUS SYSTEM: No focal deficits. DISCHARGE ADVICE: 1. Diet is cardiac. 2. Activity limited until follow-up. 3. Follow-up with Dr. William Delgadillo in 2 to 3 days. MEDICATIONS: 1. Xanax 0.5 mg p.o. daily. 2. Coreg 3.12 mg p.o. b.i.d. 3. Lasix 40 mg p.o. daily. 4. Zestril 2.5 mg daily. 5. Klor-Con 20 mEq p.o. daily. 6. Zoloft 50 mg p.o. daily. 7. Zocor 20 mg at bedtime. 8. Requip 0.25 mg p.o. daily. 9. Multivitamin 1 p.o. daily.
== END 2016-11-28 16:37 | disposition home health service (06) | DRG 190 ==
LOC: EC 17:42 → 6SEL 20:05
PROVIDERS: ADMIT Hospitalist; ATTEND Hospitalist
DX: J44.0 Chronic obstructive pulmonary disease with (acute) lower respiratory infection (principal); I50.23 Acute on chronic systolic (congestive) heart failure; I42.9 Cardiomyopathy, unspecified; J44.1 Chronic obstructive pulmonary disease with (acute) exacerbation; Z66 Do not resuscitate; F17.200 Nicotine dependence, unspecified, uncomplicated; J20.9 Acute bronchitis, unspecified; R79.1 Abnormal coagulation profile; T45.515A Adverse effect of anticoagulants, initial encounter; Z96.642 Presence of left artificial hip joint; M19.91 Primary osteoarthritis, unspecified site; L30.9 Dermatitis, unspecified; Z79.01 Long term (current) use of anticoagulants; Z95.0 Presence of cardiac pacemaker; Z95.2 Presence of prosthetic heart valve; Z79.899 Other long term (current) drug therapy
CPT/HCPCS: 36415; 71020; 80048; 80053; 80061; 82550; 82553; 83735; 83880; 84484; 85025; 85610; 85730; 87040; 93005; 94640; 96374; 99291

== ENCOUNTER 2017-05-18 10:47 | Inpatient (IN) | payer MEDICARE ==
[2017-05-18] MEDS ORDERED: IPRATROPIUM-ALBUTEROL 3 ML NEB INHALATION STA (11:03)
--- NOTE | 2017-05-18 11:06 | ED ---
General Adult HPI - General Chief complaint: Shortness of Breath Stated complaint: Difficulty Breathing Time Seen by Provider: 05/18/17 11:00 Source: patient, EMS, RN notes reviewed Mode of arrival: EMS Limitations: physical limitation - History of Present Illness Initial comments: Patient is a pleasant 86-year-old female presenting to the emergency department with difficulty in breathing. Onset of symptoms was a couple of days ago and has progressed. No cough. Symptoms do worsen with exertion. Patient has a history of similar symptoms associated with COPD. Patient also noticed some mild leg swelling and does also have a history of congestive heart failure. No chest pain. No fever. - Related Data Home Medications Medication Instructions Recorded Confirmed ALPRAZolam [Xanax] 0.5 mg PO DAILY 11/25/16 05/18/17 Potassium Chloride [Klor-Con 20] 20 meq PO DAILY 11/25/16 05/18/17 Sertraline HCl [Zoloft] 50 mg PO DAILY 11/25/16 05/18/17 rOPINIRole HCL [Requip] 0.25 mg PO HS 11/25/16 05/18/17 Furosemide [Lasix] 20 mg PO BID 05/18/17 05/18/17 Lisinopril [Zestril] 2.5 mg PO DAILY 05/18/17 05/18/17 Metoprolol Succinate (ER) [Toprol 25 mg PO DAILY 05/18/17 05/18/17 Xl] Warfarin [Coumadin] 1.5 mg PO MOWEFR 05/18/17 05/18/17 Warfarin [Coumadin] 3 mg PO SUTUTHSA 05/18/17 05/18/17 Allergies Allergy/AdvReac Type Severity Reaction Status Date / Time Penicillins AdvReac BURNING Verified 05/18/17 11:54 THROAT Review of Systems ROS Statement: Those systems with pertinent positive or pertinent negative responses have been documented in the HPI. ROS Other: All systems not noted in ROS Statement are negative. Constitutional: Denies: fever Eyes: Denies: eye pain ENT: Denies: ear pain Respiratory: Reports: dyspnea. Denies: cough Cardiovascular: Denies: chest pain Endocrine: Reports: fatigue Gastrointestinal: Denies: abdominal pain Genitourinary: Denies: dysuria Musculoskeletal: Denies: back pain Skin: Denies: rash Neurological: Denies: weakness Past Medical History Past Medical History: COPD Additional Past Medical History / Comment(s): pacemaker, ezcema History of Any Multi-Drug Resistant Organisms: None Reported Past Surgical History: Cardiac Valve Replacement, Pacemaker Additional Past Surgical History / Comment(s): L hip replacement Past Anesthesia/Blood Transfusion Reactions: No Reported Reaction Type of Cardiac Device: Permanent Pacemaker Device Placement Date:: 2013 Past Psychological History: No Psychological Hx Reported Smoking Status: Current every day smoker Past Alcohol Use History: Occasional Past Drug Use History: None Reported - Past Family History Son(s) Family Medical History: Cancer Additional Family Medical History / Comment(s): son from lung cancer Father Family Medical History: No Reported History Mother Family Medical History: No Reported History General Exam Limitations: physical limitation General appearance: alert, in no apparent distress Head exam: Present: atraumatic Eye exam: Present: normal appearance, PERRL ENT exam: Present: normal oropharynx Neck exam: Present: normal inspection Respiratory exam: Present: wheezes, rales Cardiovascular Exam: Present: regular rate, normal rhythm GI/Abdominal exam: Present: soft. Absent: tenderness Extremities exam: Present: pedal edema (+1 bilaterally). Absent: calf tenderness Neurological exam: Present: alert Psychiatric exam: Present: normal affect, normal mood Skin exam: Present: normal color Course Vital Signs 05/18/17 05/18/17 05/18/17 10:49 11:10 11:18 Temperature 98 F Pulse Rate 83 78 74 Respiratory 26 H Rate Blood Pressure 185/80 O2 Sat by Pulse 96 Oximetry 05/18/17 05/18/17 11:39 12:23 Temperature Pulse Rate 94 Respiratory 28 H 16 Rate Blood Pressure 156/69 O2 Sat by Pulse 91 L Oximetry EKG Findings - EKG Comments: EKG Findings:: Paced rhythm at 78. QRS 134. QT 434. QTC 494. [place] indeterminate. Wide QRS complex. Nonspecific ST-T. Medical Decision Making - Medical Decision Making Patient reevaluated and is somewhat improved. Patient updated on results and plan. Dr. Price has been paged, covering for Dr. mijares who admits for Dr. Delgadillo. - Lab Data Result diagrams: 05/18/17 11:23 05/18/17 11:23 Lab Results 05/18/17 05/18/17 05/18/17 Range/Units 11:23 11:23 11:23 WBC 9.7 (3.8-10.6) k/uL RBC 4.47 (3.80-5.40) m/uL Hgb 13.6 (11.4-16.0) gm/dL Hct 45.6 (34.0-46.0) % MCV 102.0 H (80.0-100.0) fL MCH 30.4 (25.0-35.0) pg MCHC 29.8 L (31.0-37.0) g/dL RDW 16.7 H (11.5-15.5) % Plt Count 104 L (150-450) k/uL Neutrophils % 81 % Lymphocytes % 7 % Monocytes % 8 % Eosinophils % 1 % Basophils % 0 % Neutrophils # 7.8 H (1.3-7.7) k/uL Lymphocytes # 0.7 L (1.0-4.8) k/uL Monocytes # 0.8 (0-1.0) k/uL Eosinophils # 0.1 (0-0.7) k/uL Basophils # 0.0 (0-0.2) k/uL Hypochromasia Marked Anisocytosis Slight Macrocytosis Slight PT (9.0-12.0) sec INR (<1.2) APTT (22.0-30.0) sec Sodium 141 (137-145) mmol/L Potassium 4.0 (3.5-5.1) mmol/L Chloride 107 (98-107) mmol/L Carbon Dioxide 26 (22-30) mmol/L Anion Gap 8 mmol/L BUN 11 (7-17) mg/dL Creatinine 0.65 (0.52-1.04) mg/dL Est GFR (MDRD) Af Amer >60 (>60 ml/min/1.73 sqM) Est GFR (MDRD) Non-Af >60 (>60 ml/min/1.73 sqM) Glucose 106 H (74-99) mg/dL Calcium 8.5 (8.4-10.2) mg/dL Total Bilirubin 1.4 H (0.2-1.3) mg/dL AST 24 (14-36) U/L ALT 36 (9-52) U/L Alkaline Phosphatase 111 (38-126) U/L Total Creatine Kinase 40 (30-135) U/L CK-MB (CK-2) 2.8 H* (0.0-2.4) ng/mL CK-MB (CK-2) Rel Index 7.0 Troponin I 0.032 (0.000-0.034) ng/mL NT-Pro-B Natriuret Pep pg/mL Total Protein 6.4 (6.3-8.2) g/dL Albumin 3.3 L (3.5-5.0) g/dL 05/18/17 05/18/17 Range/Units 11:23 11:23 WBC (3.8-10.6) k/uL RBC (3.80-5.40) m/uL Hgb (11.4-16.0) gm/dL Hct (34.0-46.0) % MCV (80.0-100.0) fL MCH (25.0-35.0) pg MCHC (31.0-37.0) g/dL RDW (11.5-15.5) % Plt Count (150-450) k/uL Neutrophils % % Lymphocytes % % Monocytes % % Eosinophils % % Basophils % % Neutrophils # (1.3-7.7) k/uL Lymphocytes # (1.0-4.8) k/uL Monocytes # (0-1.0) k/uL Eosinophils # (0-0.7) k/uL Basophils # (0-0.2) k/uL Hypochromasia Anisocytosis Macrocytosis PT 16.3 H (9.0-12.0) sec INR 1.7 H (<1.2) APTT 25.9 (22.0-30.0) sec Sodium (137-145) mmol/L Potassium (3.5-5.1) mmol/L Chloride (98-107) mmol/L Carbon Dioxide (22-30) mmol/L Anion Gap mmol/L BUN (7-17) mg/dL Creatinine (0.52-1.04) mg/dL Est GFR (MDRD) Af Amer (>60 ml/min/1.73 sqM) Est GFR (MDRD) Non-Af (>60 ml/min/1.73 sqM) Glucose (74-99) mg/dL Calcium (8.4-10.2) mg/dL Total Bilirubin (0.2-1.3) mg/dL AST (14-36) U/L ALT (9-52) U/L Alkaline Phosphatase (38-126) U/L Total Creatine Kinase (30-135) U/L CK-MB (CK-2) (0.0-2.4) ng/mL CK-MB (CK-2) Rel Index Troponin I (0.000-0.034) ng/mL NT-Pro-B Natriuret Pep 5470 pg/mL Total Protein (6.3-8.2) g/dL Albumin (3.5-5.0) g/dL - Radiology Data Radiology results: image reviewed (Chest x-ray shows cardiomegaly and increased interstitial markings consistent with CHF.) Disposition Clinical Impression: Acute exacerbation of chronic obstructive airways disease, Congestive heart failure Disposition: ADMITTED IP TO THIS HOSP Referrals: William Delgadillo MD [Primary Care Provider] - 1-2 days Decision Time: 12:43
[2017-05-18 11:43] LABS: INR 1.7 (<1.2); Partial Thromboplastin Time 25.9 sec (22.0-30.0); Prothrombin Time 16.3 sec (9.0-12.0)
[2017-05-18 11:45] LABS: ALT 36 U/L (9-52); AST 24 U/L (14-36); Alkaline Phosphatase 111 U/L (38-126); Anion Gap 8 mmol/L; Blood Urea Nitrogen 11 mg/dL (7-17); Calcium 8.5 mg/dL (8.4-10.2); Carbon Dioxide 26 mmol/L (22-30); Chloride 107 mmol/L (98-107); Glucose 106 mg/dL (74-99); Non-African American GFR(MDRD) >60 (>60 ml/min/1.73 sqM); Sodium 141 mmol/L (137-145); Total Bilirubin 1.4 mg/dL (0.2-1.3); Total Protein 6.4 g/dL (6.3-8.2)
[2017-05-18 11:53] LABS: Anisocytosis Slight; Basophils % (A) 0 %; CH 30.3; Eosinophils # (A) 0.1 k/uL (0-0.7); Eosinophils % (A) 1 %; HCT 45.6 % (34.0-46.0); HDW 2.91; HGB 13.6 gm/dL (11.4-16.0); Hypochromasia Marked; Luc # (Auto) 0.21; Luc % (Auto) 2; Lymphocytes # (A) 0.7 k/uL (1.0-4.8); Lymphocytes % (A) 7 %; MCH 30.4 pg (25.0-35.0); MCHC 29.8 g/dL (31.0-37.0); Macrocytosis Slight; Mean Platelet Volume 9.2; Monocytes # (A) 0.8 k/uL (0-1.0); Monocytes % (A) 8 %; Neutrophils # (A) 7.8 k/uL (1.3-7.7); Neutrophils % (A) 81 %; RBC 4.47 m/uL (3.80-5.40); RDW 16.7 % (11.5-15.5); WBC 9.7 k/uL (3.8-10.6); WBC (Perox) 9.84
--- NOTE | 2017-05-18 11:55 | XR ---
EXAMINATION TYPE: XR chest 2V DATE OF EXAM: 05/18/2017 COMPARISON: 11/26/2016 HISTORY: Shortness of breath FINDINGS: Noted is pulmonary venous congestion with scattered infiltrates. There is also cardiomegaly and small effusions. Pacer device is in place. IMPRESSION: Findings compatible with congestive failure. Infiltrates of other etiology are not excluded. Clinical correlation and progress studies are recommended.
[2017-05-18 12:21] LABS: Troponin I 0.032 ng/mL (0.000-0.034)
[2017-05-18 12:26] LABS: Creatine Kinase MB 2.8 ng/mL (0.0-2.4)
[2017-05-18] MEDS ORDERED: IPRATROPIUM-ALBUTEROL 3 ML NEB INHALATION PRN (12:40)
[2017-05-18] MEDS ORDERED: ASPIRIN 325 MG TAB PO STA (12:40)
[2017-05-18] MEDS ORDERED: FUROSEMIDE 10 MG/ML 4 ML VIAL IV SCH (12:45)
[2017-05-18] MEDS: methylPREDNISolone SOD SUCCI 125 MG/2 ML VIAL IV SCH ×3 (12:58→23:55)
--- NOTE | 2017-05-18 13:55 | P.CNPUL ---
History of Present Illness Consult date: 05/18/17 Reason for consult: dyspnea History of present illness: This is an 86-year-old female patient with known history of COPD and congestion heart failure who presented to the hospital with progressive increased shortness of breath over the past few days. She has exertional dyspnea and worsening lower extremity edema. No significant cough or sputum production. No pleurisy. No hemoptysis. No chest pain. No change in mental status. The chest x-ray shows cardiac negative pulmonary vessel congestion. She has an elevated proBNP level of 6000. Her EKG showing a paced rhythm at the rate of 78. Is a chronic smoker in she was smoking half pack of cigarettes a day up to yesterday. She is on Coumadin and her INR on admission was at 1.7. Normal renal function. The rest of the electrodes are all within normal limits. The first set of troponins of 0.032. Noted the patient has undergone a previous TAVR at [facility]. She is on long-term anticoagulation probably related to previous history of atrial fibrillation current rhythm is paced. Review of Systems Constitutional: Reports fatigue, Reports weakness, Reports weight gain Eyes: denies as per HPI, denies blurred vision, denies bulging eye Ears: deny: decreased hearing, ear discharge, earache Cardiovascular: Reports decreased exercise tolerance, Reports dyspnea on exertion, Reports edema, Reports orthopnea, Reports shortness of breath Respiratory: Reports cough, Reports dyspnea (Unable to climb a flight of stairs. Unable to walk more than a block on a flat surface without getting short of breath.) Gastrointestinal: Denies abdominal pain, Denies diarrhea, Denies nausea, Denies vomiting Genitourinary: Denies dysuria, Denies hematuria Musculoskeletal: Denies myalgias Musculoskeletal: bilateral: ankle swelling, absent: ankle pain, ankle stiffness Integumentary: Denies pruritus, Denies rash Neurological: Denies numbness, Denies weakness Past Medical History Past Medical History: COPD Additional Past Medical History / Comment(s): COPD, congestion heart failure, valvular heart disease with a previous valve replacement/ TAVR , history of pacemaker insertion and the patient has a paced rhythm for now, anticoagulation long-term on warfarin probably related to previous atrial fibrillation current rhythm is paced on EKG, osteoarthritis, DNR/DNI CODE STATUS, ezcema History of Any Multi-Drug Resistant Organisms: None Reported Past Surgical History: Cardiac Valve Replacement, Pacemaker Additional Past Surgical History / Comment(s): L hip replacement Past Anesthesia/Blood Transfusion Reactions: No Reported Reaction Type of Cardiac Device: Permanent Pacemaker Device Placement Date:: 2013 Past Psychological History: No Psychological Hx Reported Smoking Status: Current every day smoker Past Alcohol Use History: Occasional Past Drug Use History: None Reported - Past Family History Son(s) Family Medical History: Cancer Additional Family Medical History / Comment(s): son from lung cancer Father Family Medical History: No Reported History Mother Family Medical History: No Reported History Medications and Allergies Home Medications Medication Instructions Recorded Confirmed Type ALPRAZolam [Xanax] 0.5 mg PO DAILY 11/25/16 05/18/17 History Potassium Chloride [Klor-Con 20] 20 meq PO DAILY 11/25/16 05/18/17 History Sertraline HCl [Zoloft] 50 mg PO DAILY 11/25/16 05/18/17 History rOPINIRole HCL [Requip] 0.25 mg PO HS 11/25/16 05/18/17 History Furosemide [Lasix] 20 mg PO BID 05/18/17 05/18/17 History Lisinopril [Zestril] 2.5 mg PO DAILY 05/18/17 05/18/17 History Metoprolol Succinate (ER) [Toprol 25 mg PO DAILY 05/18/17 05/18/17 History Xl] Warfarin [Coumadin] 1.5 mg PO MOWEFR 05/18/17 05/18/17 History Warfarin [Coumadin] 3 mg PO SUTUTHSA 05/18/17 05/18/17 History Allergies Allergy/AdvReac Type Severity Reaction Status Date / Time Penicillins AdvReac BURNING Verified 05/18/17 11:54 THROAT Physical Exam Vitals: Vital Signs Temp Pulse Resp BP Pulse Ox 05/18/17 13:08 96.8 F L 85 20 144/64 99 05/18/17 12:23 94 16 156/69 91 L 05/18/17 11:39 28 H 05/18/17 11:18 74 05/18/17 11:10 78 05/18/17 10:49 98 F 83 26 H 185/80 96 Intake and Output 05/17/17 05/18/17 05/18/17 22:59 06:59 14:59 Other: Weight 63.503 kg Patient Weight 05/19/17 06:59 Weight 63.503 kg Thin and frail elderly female patient on acute distress. Not using excessive muscle breathing.Head exam was generally normal. There was no scleral icterus or corneal arcus. Mucous membranes were moist.Neck was supple and without jugular venous distension, thyromegaly, or carotid bruits. Carotids were easily palpable bilaterally. There was no adenopathy. Lung sounds are diminished bilaterally along with some few bibasilar crackles.Cardiac exam revealed the PMI to be normally situated and sized. The rhythm was regular and no extrasystoles were noted during several minutes of auscultation. The first and second heart sounds were normal and physiologic splitting of the second heart sound was noted. There were a grade 2/6 systolic ejection murmur heard throughout the precordium.Abdominal exam revealed normal bowel sounds. The abdomen was soft, non-tender, and without masses, organomegaly, or appreciable enlargement of the abdominal aorta. Examination of the extremities revealed easily palpable radial, femoral and pedal pulses. There was no cyanosis, clubbing and there was +1 pitting edema. Neurologically the patient is awake and alert and there is no focal neurological deficits. Skin examination shows no open wounds or ulcerations. Skeletal examination shows no deformities or active arthritis. Results - Laboratory Findings CBC and BMP: 05/18/17 11:23 05/18/17 11:23 PT/INR, D-dimer PT 16.3 sec (9.0-12.0) H 05/18/17 11:23 INR 1.7 (<1.2) H 05/18/17 11:23 Abnormal lab findings: Abnormal Labs 05/18/17 05/18/17 05/18/17 11:23 11:23 11:23 MCV 102.0 H MCHC 29.8 L RDW 16.7 H Plt Count 104 L Neutrophils # 7.8 H Lymphocytes # 0.7 L PT INR Glucose 106 H Total Bilirubin 1.4 H CK-MB (CK-2) 2.8 H* Albumin 3.3 L 05/18/17 11:23 MCV MCHC RDW Plt Count Neutrophils # Lymphocytes # PT 16.3 H INR 1.7 H Glucose Total Bilirubin CK-MB (CK-2) Albumin - Diagnostic Findings Chest x-ray: image reviewed Assessment and Plan Plan: Assessment 1 shortness of breath likely related to CHF exacerbation with a component of COPD. Predominant factor seems to be CHF at this point 2 worsening lower extremity edema secondary to CHF 3 history of valvular heart disease, probably aortic stenosis as the patient has a TAVR done a few years back 4 history of atrial fibrillation current rhythm is paced and the patient is on long-term anticoagulation with subtherapeutic PT/INR of 1.7 5 COPD 6 chronic smoking 7 biventricular pacemaker insertion, current rhythm is paced Plan Put the patient on DuoNeb the last treatment [id number]. IV Lasix 40 g every 12 hours. Monitor electrolytes. Resume outpatient medications. Adjust Coumadin to maintain INR between 2 and 3. Daily PT/INR monitoring. Cardiology Consultation. Repeat echocardiogram with systolic been done over the past 6 months. Smoking cessation counseling. We'll follow.
[2017-05-18] MEDS ORDERED: ALPRAZolam 0.5 MG TAB PO SCH (14:00)
[2017-05-18] MEDS: IPRATROPIUM-ALBUTEROL 3 ML NEB INHALATION SCH ×2 (15:15→19:33)
[2017-05-18 16:49] LABS: Glucose,Whole Blood 124 mg/dL (75-99)
[2017-05-18] MEDS: NITROGLYCERIN OINT 1 INCH/GM PACKET TOPICAL SCH ×3 (17:16→20:44)
[2017-05-18] MEDS ORDERED: TEMAZEPAM 15 MG CAP PO PRN (17:26)
[2017-05-18] MEDS ORDERED: HYDROcodone/APAP 5-325MG 1 EACH TAB PO PRN (17:26)
[2017-05-18] MEDS: METOPROLOL SUCCINATE (ER) 25 MG TAB.ER.24H PO SCH (17:37)
[2017-05-18] MEDS: LISINOPRIL 2.5 MG TAB PO SCH (17:37)
[2017-05-18] MEDS: SERTRALINE 50 MG TAB PO SCH (17:38)
[2017-05-18] MEDS: WARFARIN 3 MG TAB PO SCH (17:39)
--- NOTE | 2017-05-18 19:25 | HP ---
HISTORY AND PHYSICAL DATE OF SERVICE: 05/18/2017 CHIEF COMPLAINT: Shortness of breath. HISTORY OF PRESENT ILLNESS: This 86-year-old woman with a past medical history of multiple medical problems COPD, CHF, valvular heart disease, history of TAVR, being followed by Dr. Delgadillo in the outpatient setting was admitted with shortness of breath. The patient had a combination of CHF and COPD previously. There is no history of smoking. The shortness of breath with increasing intensity and after the multiple treatment the patient is feeling slightly better. There is no history of fever, rigors. No headache, loss of consciousness, seizures. No history of chest pain, palpitations, hematochezia or melena either. Evaluation by Dr. Haddad is being closely monitored at this time. Patient also complained bilateral leg edema. CHF is thought to be the predominant component of the shortness of breath. PAST MEDICAL HISTORY: History of COPD, CHF, history of cardiac pacemaker. MEDICATIONS: Prior to admission include: 1. Coumadin 3 mg Monday, Monday, , Monday. 2. Requip 0.2 mg q.h.s. 3. Coumadin 1.5 mg Monday, Monday and Monday. 4. Zoloft 50 mg p.o. daily. 5. Klor-Con 10 mEq p.o. daily. 6. Toprol XL 25 mg p.o. daily. 7. Zestril 2.5 mg. 8. Lasix 20 mg p.o. b.i.d. 9. Xanax 0.5 mg p.o. daily. ALLERGIES: Penicillin family. FAMILY HISTORY: History of lung cancer in the family. SOCIAL HISTORY: History of smoking continued ongoing. Occasional alcohol intake. REVIEW OF SYSTEMS: ENT: Diminished vision. No diminished hearing. CARDIOVASCULAR: As mentioned. RESPIRATORY: As mentioned. GI: No nausea. : No dysuria. NERVOUS SYSTEM: No numbness or weakness. ALLERGY/IMMUNOLOGY: No asthma or hayfever. MUSCULOSKELETAL: As mentioned. HEMATOLOGY: No history of anemia. ENDOCRINE: No history of diabetes, hypothyroidism. CONSTITUTIONAL: As mentioned earlier. DERMATOLOGY: Negative. RHEUMATOLOGY Negative. PSYCHIATRY: As mentioned earlier. PHYSICAL EXAMINATION: Alert, oriented x3. Pulse 89, blood pressure 130/87, respiration 20, temperature 96.8, pulse ox 99% on 3 L. HEENT: Conjunctivae normal. Oral mucosa moist. NECK: Jugular venous distention at root of the neck. Accessory muscles are acting. CARDIOVASCULAR: S1, S2 muffled. Ejection systolic murmur present. No S3, no S4. RESPIRATORY: Breath sounds diminished at the bases. A few bilateral scattered rhonchi and crackles. Expiratory wheezing also heard. ABDOMEN: Soft, nontender. No mass palpable. LEGS: No edema, no swelling. NERVOUS SYSTEM: Higher functions as mentioned earlier. Moves all four limbs. No focal deficits. LYMPHATIC: No lymphadenopathy in the neck, axillae, or groin. SKIN: No ulcer, rash, bleeding. JOINTS: No active deforming arthropathy. LABS: WBC 7.2, hemoglobin 13.3, INR is 1.7. CK-MB is 2.8. Albumin is 3.3. ASSESSMENT: 1. Shortness of breath with multifactorial possibly congestive heart failure acute exacerbation as well as chronic obstructive pulmonary disease acute exacerbation. 2. History of valvular heart disease with previous valve replacement and TAVR. 3. History of pacemaker implantation. 4. History of degenerative joint disease, left hip replacement. 5. History of nicotine dependence. RECOMMENDATIONS AND DISCUSSION: In this 86-year-old woman with a past history of multiple medical problems, we will monitor the patient closely. Continue the current management and symptomatic treatment. IV Lasix initiated. Recommend bronchodilators and as well as IV steroids also. Resume the home medications and guarded prognosis because of multiple complex medical issues and further recommendations to follow. Smoking cessation has been recommended. Symptomatic treatment. Further recommendations to follow. See orders for further details. Discussed with the patient who understands and agrees. MMODL / IJN: [id number] /
[2017-05-18 20:39] LABS: Glucose,Whole Blood 218 mg/dL (75-99)
[2017-05-18] MEDS: ALPRAZolam 0.5 MG TAB PO SCH (20:43)
[2017-05-18] MEDS: POTASSIUM CHLORIDE ER 20 MEQ TAB.ER PO SCH (20:43)
[2017-05-18] MEDS: INSULIN LISPRO (humaLOG) 300 UNIT/3 ML VIAL SQ SCH (20:51)
[2017-05-18] MEDS: FUROSEMIDE 10 MG/ML 4 ML VIAL IV SCH (21:14)
[2017-05-19] MEDS ORDERED: ACETAMINOPHEN TAB 500 MG TAB PO STA (00:02)
[2017-05-19 05:22] LABS: Glucose,Whole Blood 119 mg/dL (75-99)
[2017-05-19] MEDS: INSULIN LISPRO (humaLOG) 300 UNIT/3 ML VIAL SQ SCH ×4 (06:06→20:59)
[2017-05-19] MEDS: methylPREDNISolone SOD SUCCI 125 MG/2 ML VIAL IV SCH ×4 (06:07→22:51)
[2017-05-19 07:05] LABS: Anisocytosis Slight; Basophils % (A) 0 %; CH 30.4; CHCM 30.2; Eosinophils % (A) 0 %; HCT 41.3 % (34.0-46.0); HDW 2.85; HGB 12.1 gm/dL (11.4-16.0); Hypochromasia Marked; Luc # (Auto) 0.05; Luc % (Auto) 1; Lymphocytes # (A) 0.3 k/uL (1.0-4.8); Lymphocytes % (A) 4 %; MCH 29.7 pg (25.0-35.0); MCHC 29.2 g/dL (31.0-37.0); MCV 101.8 fL (80.0-100.0); Macrocytosis Slight; Mean Platelet Volume 9.1; Monocytes # (A) 0.2 k/uL (0-1.0); Monocytes % (A) 3 %; Neutrophils # (A) 6.6 k/uL (1.3-7.7); Neutrophils % (A) 93 %; RBC 4.06 m/uL (3.80-5.40); RDW 16.5 % (11.5-15.5); WBC 7.1 k/uL (3.8-10.6); WBC (Perox) 7.41
[2017-05-19 07:21] LABS: Anion Gap 6 mmol/L; Blood Urea Nitrogen 15 mg/dL (7-17); Calcium 8.1 mg/dL (8.4-10.2); Carbon Dioxide 31 mmol/L (22-30); Chloride 103 mmol/L (98-107); Glucose 110 mg/dL (74-99); INR 1.5 (<1.2); Non-African American GFR(MDRD) >60 (>60 ml/min/1.73 sqM); Potassium 3.9 mmol/L (3.5-5.1); Sodium 140 mmol/L (137-145)
[2017-05-19] MEDS: FUROSEMIDE 10 MG/ML 4 ML VIAL IV SCH ×2 (07:59→20:58)
[2017-05-19] MEDS: LISINOPRIL 2.5 MG TAB PO SCH (07:59)
[2017-05-19] MEDS: POTASSIUM CHLORIDE ER 20 MEQ TAB.ER PO SCH (07:59)
[2017-05-19] MEDS: NITROGLYCERIN OINT 1 INCH/GM PACKET TOPICAL SCH ×4 (08:00→21:00)
[2017-05-19] MEDS: METOPROLOL SUCCINATE (ER) 25 MG TAB.ER.24H PO SCH (08:00)
[2017-05-19] MEDS: SERTRALINE 50 MG TAB PO SCH (08:01)
[2017-05-19] MEDS ORDERED: ASPIRIN 325 MG TAB PO SCH (09:00)
[2017-05-19] MEDS: IPRATROPIUM-ALBUTEROL 3 ML NEB INHALATION SCH ×4 (10:00→20:47)
[2017-05-19 11:48] LABS: Glucose,Whole Blood 184 mg/dL (75-99)
--- NOTE | 2017-05-19 12:51 | P.CRDCN ---
History of Present Illness Consult date: 05/19/17 Requesting physician: Jerome Dutton Consult reason: congestive heart failure Chief complaint: Shortness of breath History of present illness: This is an 86-year-old female patient who follows with Dr. Isabelle Alvarez in the office. 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 Patient has also noticed significant peripheral edema. Positive PND and orthopnea. S2 x-ray revealed findings compatible with congestive heart failure. Infiltrates not excluded. Hg on admission showed a ventricular paced rhythm with underlying atrial fibrillation. The pressure on admission 185/80 with a heart rate in the 80s 96 % on room air temperature 98.0. WBC 7.1, hemoglobin 12.1, platelet count 89. INR 1.7 on admission, 1.5 this morning. Sodium 140, potassium 4.0, BUN 15, creatinine 0.7. Total bilirubin 1.4, AST and ALT are normal. Troponin 0.032. BNP level 5470. Patient was initiated on IV Lasix in the emergency room. According to the patient, she states her breathing is somewhat improved today, continues to have significant peripheral edema Past Medical History Past Medical History: COPD, Pneumonia Additional Past Medical History / Comment(s): COPD, congestion heart failure, valvular heart disease with a previous valve replacement/ TAVR , history of pacemaker insertion and the patient has a paced rhythm for now, anticoagulation long-term on warfarin previous atrial fibrillation current rhythm is paced on EKG, osteoarthritis, ezcema History of Any Multi-Drug Resistant Organisms: None Reported Past Surgical History: Cardiac Valve Replacement, Pacemaker Additional Past Surgical History / Comment(s): L hip replacement, CATARACTS Past Anesthesia/Blood Transfusion Reactions: No Reported Reaction Additional Past Anesthesia/Blood Transfusion Reaction / Comment(s): BLOOD TRANSFUSION IN PAST- NO REACTION Type of Cardiac Device: Permanent Pacemaker Device Placement Date:: 2013 Smoking Status: Current every day smoker - Past Family History Son(s) Family Medical History: Cancer Additional Family Medical History / Comment(s): son from lung cancer Father Family Medical History: No Reported History Additional Family Medical History / Comment(s): IN HIS SLEEP AT AGE 92 Mother Family Medical History: Cancer, Myocardial Infarction ([place]) Additional Family Medical History / Comment(s): COLON CANCER Medications and Allergies Home Medications Medication Instructions Recorded Confirmed Type ALPRAZolam [Xanax] 0.5 mg PO DAILY 11/25/16 05/18/17 History Potassium Chloride [Klor-Con 20] 20 meq PO DAILY 11/25/16 05/18/17 History Sertraline HCl [Zoloft] 50 mg PO DAILY 11/25/16 05/18/17 History rOPINIRole HCL [Requip] 0.25 mg PO HS 11/25/16 05/18/17 History Furosemide [Lasix] 20 mg PO BID 05/18/17 05/18/17 History Lisinopril [Zestril] 2.5 mg PO DAILY 05/18/17 05/18/17 History Metoprolol Succinate (ER) [Toprol 25 mg PO DAILY 05/18/17 05/18/17 History Xl] Warfarin [Coumadin] 1.5 mg PO MOWEFR 05/18/17 05/18/17 History Warfarin [Coumadin] 3 mg PO SUTUTHSA 05/18/17 05/18/17 History Allergies Allergy/AdvReac Type Severity Reaction Status Date / Time Penicillins AdvReac BURNING Verified 05/18/17 11:54 THROAT Physical Exam Vitals: Vital Signs Temp Pulse Pulse Resp BP BP BP 05/19/17 11:56 77 20 05/19/17 11:53 97.6 F 77 20 116/60 05/19/17 08:00 96.8 F L 79 20 128/75 05/19/17 04:00 97.1 F L 75 18 130/78 05/19/17 00:00 97 F L 74 18 120/74 05/18/17 20:00 97.1 F L 71 18 100/59 05/18/17 19:50 78 05/18/17 19:33 77 05/18/17 16:00 76 128/74 05/18/17 15:40 96.8 F L 89 138/82 05/18/17 15:27 80 05/18/17 15:15 80 05/18/17 13:08 96.8 F L 85 20 144/64 Pulse Ox 05/19/17 11:56 05/19/17 11:53 94 L 05/19/17 08:00 94 L 05/19/17 04:00 93 L 05/19/17 00:00 94 L 05/18/17 20:00 94 L 05/18/17 19:50 05/18/17 19:33 05/18/17 16:00 91 L 05/18/17 15:40 99 05/18/17 15:27 05/18/17 15:15 05/18/17 13:08 99 Intake and Output 05/18/17 05/19/17 05/19/17 22:59 06:59 14:59 Intake Total 480 240 Balance 480 240 Intake: Oral 480 240 Other: # Voids 1 1 # Bowel Movements 0 Weight 63.503 kg 67.1 kg PHYSICAL EXAMINATION: HEENT: Head is atraumatic, normocephalic. Pupils equal, round. Neck is supple. There is elevated jugular venous pressure. HEART EXAMINATION: S1 and S2 irregularly irregular systolic ejection murmur is heard. CHEST EXAMINATION: Lungs are clear with mild diminished air entry to bilateral bases. ABDOMEN: Soft, nontender. Bowel sounds are heard. No organomegaly noted. EXTREMITIES:[ 2+ peripheral pulses with 1-2 + edema bilaterally NEUROLOGIC patient is awake, alert and oriented -3. . Results 05/19/17 05:36 05/19/17 05:36 Coagulation 05/19/17 Range/Units 05:36 PT 15.0 H (9.0-12.0) sec CBC 05/19/17 Range/Units 05:36 WBC 7.1 (3.8-10.6) k/uL RBC 4.06 (3.80-5.40) m/uL Hgb 12.1 (11.4-16.0) gm/dL Hct 41.3 (34.0-46.0) % Plt Count 89 L (150-450) k/uL Comprehensive Metabolic Panel 05/19/17 Range/Units 05:36 Sodium 140 (137-145) mmol/L Potassium 3.9 (3.5-5.1) mmol/L Chloride 103 (98-107) mmol/L Carbon Dioxide 31 H (22-30) mmol/L BUN 15 (7-17) mg/dL Creatinine 0.73 (0.52-1.04) mg/dL Glucose 110 H (74-99) mg/dL Calcium 8.1 L (8.4-10.2) mg/dL Current Medications Generic Name Dose Route Start Last Admin Trade Name Freq PRN Reason Stop Dose Admin Hydrocodone Bitart/Acetaminophen 1 each 05/18/17 17:26 05/19/17 10:25 [place] 5-325 PO 1 each Q6HR PRN Administration Pain Albuterol/Ipratropium 3 ml 05/18/17 16:00 05/18/17 19:33 Duoneb 0.5 Mg-3 Mg/3 Ml Soln INHALATION 3 ml RT-QID BITA Administration Albuterol/Ipratropium 3 ml 05/18/17 12:40 Duoneb 0.5 Mg-3 Mg/3 Ml Soln INHALATION RT-Q4H PRN Shortness Of Breath Or Wheezing Alprazolam 0.5 mg 05/18/17 21:00 05/18/17 20:43 Xanax PO 0.5 mg HS BITA Administration Aspirin 325 mg 05/19/17 09:00 05/19/17 08:00 Aspirin PO 325 mg DAILY BITA Administration Furosemide 40 mg 05/18/17 13:03 05/19/17 07:59 Lasix IV 40 mg Q12HR BITA Administration Insulin Human Lispro 0 unit 05/18/17 21:00 05/19/17 11:47 Humalog SQ 4 unit ACHS BITA Administration Protocol Lisinopril 2.5 mg 05/18/17 14:00 05/19/17 07:59 Zestril PO 2.5 mg DAILY BITA Administration Methylprednisolone Sodium Succinate 60 mg 05/18/17 12:45 05/19/17 11:45 Solu-Medrol IV 60 mg Q6HR BITA Administration Metoprolol Succinate 25 mg 05/18/17 14:00 05/19/17 08:00 Toprol Xl PO 25 mg DAILY BITA Administration Nitroglycerin 0.5 inch 05/18/17 13:00 05/19/17 11:48 Nitro-Bid Oint TOPICAL Not Given QID [facility] Potassium Chloride 20 meq 05/18/17 17:30 05/19/17 07:59 K-Dur 20 PO 20 meq DAILY BITA Administration Ropinirole HCl 0.25 mg 05/18/17 21:00 05/18/17 20:44 Requip PO 0.25 mg HS BITA Administration Sertraline HCl 50 mg 05/18/17 14:00 05/19/17 08:01 Zoloft PO 50 mg DAILY BITA Administration Sodium Chloride 10 ml 05/18/17 21:00 05/19/17 08:01 Saline Flush IV 10 ml BID BITA Administration Temazepam 15 mg 05/18/17 17:26 Restoril PO HS PRN Insomnia Warfarin Sodium 1.5 mg 05/19/17 18:00 Coumadin PO [id number]@1800 BITA Warfarin Sodium 3 mg 05/18/17 18:00 05/18/17 17:39 Coumadin PO 3 mg [id number]@1800 BITA Administration Intake and Output 05/18/17 05/19/17 05/19/17 22:59 06:59 14:59 Intake Total 480 240 Balance 480 240 Intake: Oral 480 240 Other: # Voids 1 1 # Bowel Movements 0 Weight 63.503 kg 67.1 kg 05/19/17 05:36 05/19/17 05:36 EKG Interpretations (text) EKG shows a ventricular paced rhythm with underlying atrial fibrillation. Assessment and Plan Plan: Assessment and plan #1 systolic congestive heart failure acute on chronic #2 history of mitral valve replacement with mechanical valve, redo mitral valve replacement with tissue valve, status post TAVR #3 hypertension #4 chronic smoking #5 COPD #6 biventricular pacemaker #7 hyperlipidemia #8 family history of premature coronary artery disease #9 chronic persistent atrial fibrillation, on Coumadin for anticoagulation, subtherapeutic Plan Cardiology's perspective, we will repeat an echocardiogram with Doppler study and continue current dose of IV Lasix monitoring intake and output along with daily weights. Discontinue aspirin, continue Coumadin to maintain her pubic INR. Continue beta herve and SARA inhibitor. Further recommendations to follow. DNP note has been reviewed, I agree with a documented findings and plan of care. Patient was seen and examined.
--- NOTE | 2017-05-19 12:56 | P.PN ---
<Carolyn Del Angel - Last Filed: 05/19/17 12:50> Subjective Progress Note Date: 05/19/17 This is an 86-year-old female patient with known history of COPD and congestion heart failure who presented to the hospital with progressive increased shortness of breath over the past few days. She has exertional dyspnea and worsening lower extremity edema. No significant cough or sputum production. No pleurisy. No hemoptysis. No chest pain. No change in mental status. The chest x-ray shows cardiac negative pulmonary vessel congestion. She has an elevated proBNP level of 6000. Her EKG showing a paced rhythm at the rate of 78. Is a chronic smoker in she was smoking half pack of cigarettes a day up to yesterday. She is on Coumadin and her INR on admission was at 1.7. Normal renal function. The rest of the electrodes are all within normal limits. The first set of troponins of 0.032. Noted the patient has undergone a previous TAVR at [facility]. She is on long-term anticoagulation probably related to previous history of atrial fibrillation current rhythm is paced. The patient was seen again today 05/19/2017 in follow-up on the regular medical floor. She is resting quite comfortably in bed. She is in no acute distress. She denies any worsening shortness of breath, cough or congestion. Her cough is dry currently. She denies any chest pain or palpitations. She is maintaining good O2 saturations in the 90s on room air. She's been afebrile. No chest pain. Objective - Vital Signs Vital signs: Vital Signs Temp 97.6 F 05/19/17 11:53 Pulse 77 05/19/17 11:56 Resp 20 05/19/17 11:56 BP 116/60 05/19/17 11:53 Pulse Ox 94 L 05/19/17 11:53 Intake & Output 05/18/17 05/19/17 05/19/17 18:59 06:59 18:59 Intake Total 240 240 240 Balance 240 240 240 Weight 63.503 kg 67.1 kg Intake: Oral 240 240 240 Other: # Voids 1 1 # Bowel Movements 0 - Exam Thin and frail elderly female patient on acute distress. Not using excessive muscle breathing.Head exam was generally normal. There was no scleral icterus or corneal arcus. Mucous membranes were moist.Neck was supple and without jugular venous distension, thyromegaly, or carotid bruits. Carotids were easily palpable bilaterally. There was no adenopathy. Lung sounds are diminished bilaterally along with some few bibasilar crackles.Cardiac exam revealed the PMI to be normally situated and sized. The rhythm was regular and no extrasystoles were noted during several minutes of auscultation. The first and second heart sounds were normal and physiologic splitting of the second heart sound was noted. There were a grade 2/6 systolic ejection murmur heard throughout the precordium.Abdominal exam revealed normal bowel sounds. The abdomen was soft, non-tender, and without masses, organomegaly, or appreciable enlargement of the abdominal aorta. Examination of the extremities revealed easily palpable radial, femoral and pedal pulses. There was no cyanosis, clubbing and there was +1 pitting edema. Neurologically the patient is awake and alert and there is no focal neurological deficits. Skin examination shows no open wounds or ulcerations. Skeletal examination shows no deformities or active arthritis. - Labs CBC & Chem 7: 05/19/17 05:36 05/19/17 05:36 Labs: Abnormal Lab Results - Last 24 Hours (Table) 05/18/17 05/18/17 05/19/17 Range/Units 16:47 20:37 05:22 MCV (80.0-100.0) fL MCHC (31.0-37.0) g/dL RDW (11.5-15.5) % Plt Count (150-450) k/uL Lymphocytes # (1.0-4.8) k/uL PT (9.0-12.0) sec INR (<1.2) Carbon Dioxide (22-30) mmol/L Glucose (74-99) mg/dL POC Glucose (mg/dL) 124 H 218 H 119 H (75-99) mg/dL Calcium (8.4-10.2) mg/dL 05/19/17 05/19/17 05/19/17 Range/Units 05:36 05:36 05:36 MCV 101.8 H (80.0-100.0) fL MCHC 29.2 L (31.0-37.0) g/dL RDW 16.5 H (11.5-15.5) % Plt Count 89 L (150-450) k/uL Lymphocytes # 0.3 L (1.0-4.8) k/uL PT 15.0 H (9.0-12.0) sec INR 1.5 H (<1.2) Carbon Dioxide 31 H (22-30) mmol/L Glucose 110 H (74-99) mg/dL POC Glucose (mg/dL) (75-99) mg/dL Calcium 8.1 L (8.4-10.2) mg/dL 05/19/17 Range/Units 11:46 MCV (80.0-100.0) fL MCHC (31.0-37.0) g/dL RDW (11.5-15.5) % Plt Count (150-450) k/uL Lymphocytes # (1.0-4.8) k/uL PT (9.0-12.0) sec INR (<1.2) Carbon Dioxide (22-30) mmol/L Glucose (74-99) mg/dL POC Glucose (mg/dL) 184 H (75-99) mg/dL Calcium (8.4-10.2) mg/dL Assessment and Plan Plan: Assessment 1 shortness of breath likely related to CHF exacerbation with a component of COPD. Predominant factor seems to be CHF at this point 2 worsening lower extremity edema secondary to CHF 3 history of valvular heart disease, probably aortic stenosis as the patient has a TAVR done a few years back 4 history of atrial fibrillation current rhythm is paced and the patient is on long-term anticoagulation with subtherapeutic PT/INR of 1.7 5 COPD 6 chronic smoking 7 biventricular pacemaker insertion, current rhythm is paced Plan: The patient was seen and evaluated by Dr. Haddad. She is quite stable from the pulmonary standpoint. We'll continue with her current medications. She remains on Lasix 40 mg IV every 12 hours. SHE is again educated regarding the importance of complete smoking cessation. We'll continue to follow. <Bill Haddad - Last Filed: 05/19/17 13:09> Objective - Vital Signs Vital signs: Vital Signs Temp 97.6 F 05/19/17 11:53 Pulse 77 05/19/17 11:56 Resp 20 05/19/17 11:56 BP 116/60 05/19/17 11:53 Pulse Ox 94 L 05/19/17 11:53 Intake & Output 05/18/17 05/19/17 05/19/17 18:59 06:59 18:59 Intake Total 240 240 240 Balance 240 240 240 Weight 63.503 kg 67.1 kg Intake: Oral 240 240 240 Other: # Voids 1 1 # Bowel Movements 0 - Labs CBC & Chem 7: 05/19/17 05:36 05/19/17 05:36 Labs: Abnormal Lab Results - Last 24 Hours (Table) 05/18/17 05/18/17 05/19/17 Range/Units 16:47 20:37 05:22 MCV (80.0-100.0) fL MCHC (31.0-37.0) g/dL RDW (11.5-15.5) % Plt Count (150-450) k/uL Lymphocytes # (1.0-4.8) k/uL PT (9.0-12.0) sec INR (<1.2) Carbon Dioxide (22-30) mmol/L Glucose (74-99) mg/dL POC Glucose (mg/dL) 124 H 218 H 119 H (75-99) mg/dL Calcium (8.4-10.2) mg/dL 05/19/17 05/19/17 05/19/17 Range/Units 05:36 05:36 05:36 MCV 101.8 H (80.0-100.0) fL MCHC 29.2 L (31.0-37.0) g/dL RDW 16.5 H (11.5-15.5) % Plt Count 89 L (150-450) k/uL Lymphocytes # 0.3 L (1.0-4.8) k/uL PT 15.0 H (9.0-12.0) sec INR 1.5 H (<1.2) Carbon Dioxide 31 H (22-30) mmol/L Glucose 110 H (74-99) mg/dL POC Glucose (mg/dL) (75-99) mg/dL Calcium 8.1 L (8.4-10.2) mg/dL 05/19/17 Range/Units 11:46 MCV (80.0-100.0) fL MCHC (31.0-37.0) g/dL RDW (11.5-15.5) % Plt Count (150-450) k/uL Lymphocytes # (1.0-4.8) k/uL PT (9.0-12.0) sec INR (<1.2) Carbon Dioxide (22-30) mmol/L Glucose (74-99) mg/dL POC Glucose (mg/dL) 184 H (75-99) mg/dL Calcium (8.4-10.2) mg/dL Assessment and Plan Plan: I am seeing this patient in the joint evaluation with the nurse practitioner, [place] Carolyn Philomena. The patient is improving. She is less short of breath. She is responding nicely to the diuretics. Lower extremity edema is improving. She at times feeling dizzy which I think it's related to the diuresis. No chest pain. No cough or sputum production. She has no specific complaints otherwise for now. Her INR 1.5, like there above-mentioned INR of 1.7 . Will need to avoid adjustments on the Coumadin dose to reach an INR between 2 and 3. Continue diuresis for another 24 hours. We'll continue to follow.
[2017-05-19 13:45] VITALS: BMI 23.8
[2017-05-19 16:38] LABS: Glucose,Whole Blood 141 mg/dL (75-99)
[2017-05-19] MEDS: WARFARIN 1.5 MG TAB PO SCH (16:38)
[2017-05-19] MEDS: SPIRONOLACTONE 25 MG TAB PO SCH (16:38)
--- NOTE | 2017-05-19 19:42 | ECHOF ---
Referral Reason:chf MEASUREMENTS -------- HEIGHT: 167.6 cm WEIGHT: 66.7 kg BP: 116/60 RVIDd: 3.8 cm (< 3.3) IVSd: 1.6 cm (0.6 - 1.1) LVIDd: 3.1 cm (3.9 - 5.3) LVPWd: 1.4 cm (0.6 - 1.1) IVSs: 1.9 cm LVIDs: 1.8 cm LVPWs: 2.3 cm LAESV Index (A-L): 67.35 ml/m Ao Diam: 3.4 cm (2.0 - 3.7) AV Cusp: 2.0 cm (1.5 - 2.6) LA Diam: 4.2 cm (2.7 - 3.8) MV E Sharad: 2.02 m/s MV DecT: 447 ms MV A Sharad: 0.75 m/s MV E/A Ratio: 2.70 AV maxP.77 mmHg AV meanP.74 mmHg RAP: 20.00 mmHg RVSP: 51.20 mmHg FINDINGS -------- Paced rhythm. This was a technically difficult study with suboptimal views. The left ventricular size is normal. There is moderate concentric left ventricular hypertrophy. Overall left ventricular systolic function is mildly impaired with, an EF between 45 - 50 %. There is paradoxical/dysynergic septal motion consistent with right ventricular volume overload and/or elevated right ventricular end-diastolic pressure. The right ventricle is mildly enlarged. LA is severely dilated >40 ml/m2 RA appears enlarged. Tissue Aortic Valve The mitral valve leaflets are mildly thickened. Mild mitral annular calcification present. The peak and mean MV gradients are 22.13mmHg 5.64mmHg as measured by doppler. Normally functioning bioprosthetic mitral valve. Severe tricuspid regurgitation present. There is moderate pulmonary hypertension. The right ventricular systolic pressure, as measured by Doppler, is 51.20mmHg. Trace/mild (physiologic) pulmonic regurgitation. The aortic root size is normal. The pericardium is normal. CONCLUSIONS -------- 1. Paced rhythm. 2. Tissue Aortic Valve 3. The mitral valve leaflets are mildly thickened. 4. Mild mitral annular calcification present. 5. The peak and mean MV gradients are 22.13mmHg 5.64mmHg as measured by doppler. 6. Normally functioning bioprosthetic mitral valve. 7. Severe tricuspid regurgitation present. 8. There is moderate pulmonary hypertension. 9. The right ventricular systolic pressure, as measured by Doppler, is 51.20mmHg. 10. Trace/mild (physiologic) pulmonic regurgitation. 11. The aortic root size is normal. 12. This was a technically difficult study with suboptimal views. 13. The pericardium is normal. 14. The left ventricular size is normal. 15. There is moderate concentric left ventricular hypertrophy. 16. Overall left ventricular systolic function is mildly impaired with, an EF between 45 - 50 %. 17. There is paradoxical/dysynergic septal motion consistent with right ventricular volume overload and/or elevated right ventricular end-diastolic pressure. 18. The right ventricle is mildly enlarged. 19. LA is severely dilated >40 ml/m2 20. RA appears enlarged. SP[employer] G[employer]IN DRYER: Jenna Alcantara RDCS
[2017-05-19 20:34] LABS: Glucose,Whole Blood 196 mg/dL (75-99)
[2017-05-19] MEDS: ALPRAZolam 0.5 MG TAB PO SCH (20:58)
[2017-05-20 06:20] LABS: Glucose,Whole Blood 143 mg/dL (75-99)
[2017-05-20] MEDS: methylPREDNISolone SOD SUCCI 125 MG/2 ML VIAL IV SCH ×2 (06:24→11:24)
[2017-05-20] MEDS: INSULIN LISPRO (humaLOG) 300 UNIT/3 ML VIAL SQ SCH ×4 (06:25→20:55)
[2017-05-20 06:27] LABS: Anisocytosis Slight; Basophils % (A) 0 %; CH 30.8; CHCM 30.5; Eosinophils % (A) 0 %; HCT 41.8 % (34.0-46.0); HDW 2.82; HGB 12.3 gm/dL (11.4-16.0); Hypochromasia Moderate; Luc # (Auto) 0.17; Luc % (Auto) 1; Lymphocytes # (A) 0.3 k/uL (1.0-4.8); Lymphocytes % (A) 2 %; MCHC 29.4 g/dL (31.0-37.0); MCV 101.9 fL (80.0-100.0); Macrocytosis Slight; Mean Platelet Volume 8.9; Monocytes # (A) 0.6 k/uL (0-1.0); Monocytes % (A) 4 %; Neutrophils # (A) 13.4 k/uL (1.3-7.7); Neutrophils % (A) 93 %; RDW 16.7 % (11.5-15.5); WBC 14.4 k/uL (3.8-10.6); WBC (Perox) 14.27
[2017-05-20 06:32] LABS: INR 1.9 (<1.2); Prothrombin Time 17.9 sec (9.0-12.0)
[2017-05-20 06:47] LABS: Anion Gap 8 mmol/L; Blood Urea Nitrogen 26 mg/dL (7-17); Calcium 8.6 mg/dL (8.4-10.2); Carbon Dioxide 28 mmol/L (22-30); Chloride 100 mmol/L (98-107); Glucose 142 mg/dL (74-99); Non-African American GFR(MDRD) >60 (>60 ml/min/1.73 sqM); Potassium 4.5 mmol/L (3.5-5.1); Sodium 136 mmol/L (137-145)
[2017-05-20] MEDS: NITROGLYCERIN OINT 1 INCH/GM PACKET TOPICAL SCH ×4 (08:09→20:55)
[2017-05-20] MEDS: LISINOPRIL 5 MG TAB PO SCH (08:10)
[2017-05-20] MEDS: POTASSIUM CHLORIDE ER 20 MEQ TAB.ER PO SCH (08:10)
[2017-05-20] MEDS: METOPROLOL SUCCINATE (ER) 25 MG TAB.ER.24H PO SCH (08:10)
[2017-05-20] MEDS: FUROSEMIDE 10 MG/ML 4 ML VIAL IV SCH ×3 (08:10→20:56)
[2017-05-20] MEDS: SERTRALINE 50 MG TAB PO SCH (08:11)
[2017-05-20] MEDS: SPIRONOLACTONE 25 MG TAB PO SCH (08:11)
[2017-05-20] MEDS: IPRATROPIUM-ALBUTEROL 3 ML NEB INHALATION SCH ×4 (08:31→19:39)
--- NOTE | 2017-05-20 10:20 | P.PN ---
Subjective Progress Note Date: 05/20/17 This is an 86-year-old female patient with known history of COPD and congestion heart failure who presented to the hospital with progressive increased shortness of breath over the past few days. She has exertional dyspnea and worsening lower extremity edema. No significant cough or sputum production. No pleurisy. No hemoptysis. No chest pain. No change in mental status. The chest x-ray shows cardiac negative pulmonary vessel congestion. She has an elevated proBNP level of 6000. Her EKG showing a paced rhythm at the rate of 78. Is a chronic smoker in she was smoking half pack of cigarettes a day up to yesterday. She is on Coumadin and her INR on admission was at 1.7. Normal renal function. The rest of the electrodes are all within normal limits. The first set of troponins of 0.032. Noted the patient has undergone a previous TAVR at [facility]. She is on long-term anticoagulation probably related to previous history of atrial fibrillation current rhythm is paced. The patient was seen again today 05/19/2017 in follow-up on the regular medical floor. She is resting quite comfortably in bed. She is in no acute distress. She denies any worsening shortness of breath, cough or congestion. Her cough is dry currently. She denies any chest pain or palpitations. She is maintaining good O2 saturations in the 90s on room air. She's been afebrile. No chest pain. On 05/20/2017 the patient is less short of breath. The patient is been diuresed adequately. Her urine output has dropped and the patient is not producing as much urine output that she was producing earlier. No significant electrode disturbances. BN is at 26 with a creatinine of 0.7. Lower extremity edema is improved. Her shortness of breath is also improved. She is pulse oxing above 90% on room air. No chest pain. No other significant events overnight. The patient was receiving Lasix 40 mg IV push every 12 hours. She is also on in the correlation with warfarin and INR is at 1.9. Objective - Vital Signs Vital signs: Vital Signs Temp 96.8 F L 05/20/17 08:00 Pulse 72 05/20/17 08:45 Resp 18 05/20/17 08:00 BP 138/75 05/20/17 08:00 Pulse Ox 95 05/20/17 08:00 Intake & Output 05/19/17 05/20/17 05/20/17 18:59 06:59 18:59 Intake Total 530 20 180 Balance 530 20 180 Weight 67.1 kg 67 kg Intake: IV 20 0.9 20 Oral 530 180 Other: Voiding Method Toilet Toilet # Voids 2 # Bowel Movements 0 - Exam Thin and frail elderly female patient on acute distress. Not using excessive muscle breathing.Head exam was generally normal. There was no scleral icterus or corneal arcus. Mucous membranes were moist.Neck was supple and without jugular venous distension, thyromegaly, or carotid bruits. Carotids were easily palpable bilaterally. There was no adenopathy. Lung sounds are diminished bilaterally along with some few bibasilar crackles.Cardiac exam revealed the PMI to be normally situated and sized. The rhythm was regular and no extrasystoles were noted during several minutes of auscultation. The first and second heart sounds were normal and physiologic splitting of the second heart sound was noted. There were a grade 2/6 systolic ejection murmur heard throughout the precordium.Abdominal exam revealed normal bowel sounds. The abdomen was soft, non-tender, and without masses, organomegaly, or appreciable enlargement of the abdominal aorta. Examination of the extremities revealed easily palpable radial, femoral and pedal pulses. There was no cyanosis, clubbing and there was trace lower extremity edema. Neurologically the patient is awake and alert and there is no focal neurological deficits. Skin examination shows no open wounds or ulcerations. Skeletal examination shows no deformities or active arthritis. - Labs CBC & Chem 7: 05/20/17 05:26 05/20/17 05:26 Labs: Abnormal Lab Results - Last 24 Hours (Table) 05/19/17 05/19/17 05/19/17 Range/Units 11:46 16:36 20:32 WBC (3.8-10.6) k/uL MCV (80.0-100.0) fL MCHC (31.0-37.0) g/dL RDW (11.5-15.5) % Plt Count (150-450) k/uL Neutrophils # (1.3-7.7) k/uL Lymphocytes # (1.0-4.8) k/uL PT (9.0-12.0) sec INR (<1.2) Sodium (137-145) mmol/L BUN (7-17) mg/dL Glucose (74-99) mg/dL POC Glucose (mg/dL) 184 H 141 H 196 H (75-99) mg/dL 05/20/17 05/20/17 05/20/17 Range/Units 05:26 05:26 05:26 WBC 14.4 H (3.8-10.6) k/uL MCV 101.9 H (80.0-100.0) fL MCHC 29.4 L (31.0-37.0) g/dL RDW 16.7 H (11.5-15.5) % Plt Count 109 L (150-450) k/uL Neutrophils # 13.4 H (1.3-7.7) k/uL Lymphocytes # 0.3 L (1.0-4.8) k/uL PT 17.9 H (9.0-12.0) sec INR 1.9 H (<1.2) Sodium 136 L (137-145) mmol/L BUN 26 H (7-17) mg/dL Glucose 142 H (74-99) mg/dL POC Glucose (mg/dL) (75-99) mg/dL 05/20/17 Range/Units 06:01 WBC (3.8-10.6) k/uL MCV (80.0-100.0) fL MCHC (31.0-37.0) g/dL RDW (11.5-15.5) % Plt Count (150-450) k/uL Neutrophils # (1.3-7.7) k/uL Lymphocytes # (1.0-4.8) k/uL PT (9.0-12.0) sec INR (<1.2) Sodium (137-145) mmol/L BUN (7-17) mg/dL Glucose (74-99) mg/dL POC Glucose (mg/dL) 143 H (75-99) mg/dL Assessment and Plan Plan: Assessment 1 shortness of breath likely related to CHF exacerbation with a component of COPD. Predominant factor seems to be CHF at this point 2 worsening lower extremity edema secondary to CHF 3 history of valvular heart disease, probably aortic stenosis as the patient has a TAVR done a few years back 4 history of atrial fibrillation current rhythm is paced and the patient is on long-term anticoagulation with subtherapeutic PT/INR of 1.9 5 COPD 6 chronic smoking 7 biventricular pacemaker insertion, current rhythm is paced Plan The patient will be switched to oral Lasix 40 mg by mouth twice a day. INR is up to 1.9. Discharge planning is in progress. Clinically stable for now. Continue DuoNeb the breast units [id number]. Outpatient follow-up regarding her COPD.
[2017-05-20 12:17] LABS: Glucose,Whole Blood 163 mg/dL (75-99)
--- NOTE | 2017-05-20 13:30 | P.PN ---
Subjective Progress Note Date: 05/20/17 Principal diagnosis: Shortness of breath This is an 86-year-old female patient who follows with Dr. Isabelle Alvarez in the office. 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 Patient has also noticed significant peripheral edema. Positive PND and orthopnea. S2 x-ray revealed findings compatible with congestive heart failure. Infiltrates not excluded. Hg on admission showed a ventricular paced rhythm with underlying atrial fibrillation. The pressure on admission 185/80 with a heart rate in the 80s 96 % on room air temperature 98.0. WBC 7.1, hemoglobin 12.1, platelet count 89. INR 1.7 on admission, 1.5 this morning. Sodium 140, potassium 4.0, BUN 15, creatinine 0.7. Total bilirubin 1.4, AST and ALT are normal. Troponin 0.032. BNP level 5470. Patient was initiated on IV Lasix in the emergency room. According to the patient, she states her breathing is somewhat improved today, continues to have significant peripheral edema. 05/20/2017 Patient seen and examined this morning, blood pressure 134/84, heart rate in the 70s, 92% on liters oxygen. White blood cell count 14.4, platelet count 109 , INR 1.9, potassium 4.5, creatinine 0.7. Weight is unchanged today. Patient has been advised to take the IV Lasix, she apparently refuses to take it through the night. We will discontinue the by mouth Lasix and change her back to IV Lasix, we will also request a repeat chest x-ray be performed tomorrow. Objective - Vital Signs Vital signs: Vital Signs Temp 97.0 F L 05/20/17 12:00 Pulse 78 05/20/17 12:03 Resp 18 05/20/17 12:00 BP 134/84 05/20/17 12:00 Pulse Ox 92 L 05/20/17 12:00 Intake & Output 10/13/17 10/14/17 10/14/17 18:59 06:59 18:59 Intake Total 530 20 180 Balance 530 20 180 Weight 67.1 kg 67 kg Intake: IV 20 0.9 20 Oral 530 180 Other: Voiding Method Toilet Toilet # Voids 2 # Bowel Movements 0 - Exam PHYSICAL EXAMINATION: HEENT: Head is atraumatic, normocephalic. Pupils equal, round. Neck is supple. There is elevated jugular venous pressure. HEART EXAMINATION: S1 and S2 irregularly irregular systolic ejection murmur is heard. CHEST EXAMINATION: Lungs are clear with mild diminished air entry to bilateral bases. ABDOMEN: Soft, nontender. Bowel sounds are heard. No organomegaly noted. EXTREMITIES:[ 2+ peripheral pulses with 1-2 + edema bilaterally NEUROLOGIC patient is awake, alert and oriented -3. . - Labs CBC & Chem 7: 05/20/17 05:26 05/20/17 05:26 Labs: Abnormal Lab Results - Last 24 Hours (Table) 05/19/17 05/19/17 05/20/17 Range/Units 16:36 20:32 05:26 WBC (3.8-10.6) k/uL MCV (80.0-100.0) fL MCHC (31.0-37.0) g/dL RDW (11.5-15.5) % Plt Count (150-450) k/uL Neutrophils # (1.3-7.7) k/uL Lymphocytes # (1.0-4.8) k/uL PT 17.9 H (9.0-12.0) sec INR 1.9 H (<1.2) Sodium (137-145) mmol/L BUN (7-17) mg/dL Glucose (74-99) mg/dL POC Glucose (mg/dL) 141 H 196 H (75-99) mg/dL 05/20/17 05/20/17 05/20/17 Range/Units 05:26 05:26 06:01 WBC 14.4 H (3.8-10.6) k/uL MCV 101.9 H (80.0-100.0) fL MCHC 29.4 L (31.0-37.0) g/dL RDW 16.7 H (11.5-15.5) % Plt Count 109 L (150-450) k/uL Neutrophils # 13.4 H (1.3-7.7) k/uL Lymphocytes # 0.3 L (1.0-4.8) k/uL PT (9.0-12.0) sec INR (<1.2) Sodium 136 L (137-145) mmol/L BUN 26 H (7-17) mg/dL Glucose 142 H (74-99) mg/dL POC Glucose (mg/dL) 143 H (75-99) mg/dL 05/20/17 Range/Units 11:39 WBC (3.8-10.6) k/uL MCV (80.0-100.0) fL MCHC (31.0-37.0) g/dL RDW (11.5-15.5) % Plt Count (150-450) k/uL Neutrophils # (1.3-7.7) k/uL Lymphocytes # (1.0-4.8) k/uL PT (9.0-12.0) sec INR (<1.2) Sodium (137-145) mmol/L BUN (7-17) mg/dL Glucose (74-99) mg/dL POC Glucose (mg/dL) 163 H (75-99) mg/dL Assessment and Plan Plan: Assessment and plan #1 systolic congestive heart failure acute on chronic #2 history of mitral valve replacement with mechanical valve, redo mitral valve replacement with tissue valve, status post TAVR #3 hypertension #4 chronic smoking #5 COPD #6 biventricular pacemaker #7 hyperlipidemia #8 family history of premature coronary artery disease #9 chronic persistent atrial fibrillation, on Coumadin for anticoagulation, subtherapeutic Plan From cardiology's perspective, we will discontinue by mouth Lasix and start the patient back on IV Lasix, we will also repeat a chest x-ray tomorrow. Echocardiogram with Doppler study was performed which revealed an ejection fraction of 45-50%. LA is severely dilated, severe tricuspid regurg, moderate pulmonary hypertension, there is a paradoxical/dysnergic septal motion consistent with right ventricular volume overload. Continue to monitor intake and output along with daily weights. DNP note has been reviewed, I agree with a documented findings and plan of care. Patient was seen and examined.
--- NOTE | 2017-05-20 14:16 | XR ---
EXAMINATION TYPE: XR chest 2V DATE OF EXAM: 05/20/2017 HISTORY: sob. REFERENCE: Previous study dated 05/18/2017. FINDINGS: There has been a midline sternotomy. There is a bipolar pacemaker in place on the left. The lungs are overinflated. The heart is enlarged. There is increased interstitial change. There are bilateral effusions, greater on the right than the left. IMPRESSION: 1. COPD. 2. CHANGES CONSISTENT WITH CONGESTIVE HEART FAILURE. 3. BILATERAL EFFUSIONS.
[2017-05-20] MEDS ORDERED: FUROSEMIDE 40 MG TAB PO SCH (16:00)
[2017-05-20] MEDS: WARFARIN 3 MG TAB PO SCH (16:17)
[2017-05-20] MEDS: methylPREDNISolone SOD SUCCI 40 MG/ML 1 ML VIAL IV SCH ×2 (16:22→22:55)
[2017-05-20 16:44] LABS: Glucose,Whole Blood 174 mg/dL (75-99)
--- NOTE | 2017-05-20 17:24 | PN ---
PROGRESS NOTE DATE OF SERVICE: 05/20/2017 INTERVAL HISTORY: This 86-year-old woman who was admitted with shortness of breath which is multifactorial also has CHF and COPD. No chest pain. No palpitations. No fever. The patient is feeling much better. PHYSICAL EXAM: Alert, oriented x3. Pulse 78, blood pressure 135/85, respiration 18, temperature 97 degrees, pulse ox 98% on room air. HEENT: Conjunctivae normal. Oral mucosa moist. NECK: No jugular venous distention. No lymph node enlargement. CARDIOVASCULAR: S1, S2. Ejection systolic murmur present. RESPIRATORY: Breath sounds diminished in the bases. A few scattered rhonchi. No crackles. ABDOMEN: Soft, nontender. LEGS: No edema. NERVOUS SYSTEM: No focal deficits. LABS: WBC 14.4 Accu-Cheks are noted. ASSESSMENT: 1. Shortness of breath multifactorial with possible acute congestive heart failure acute exacerbation as well as chronic obstructive pulmonary disease acute exacerbation. 2. History of valvular heart disease with previous valve replacement and TAVR. 3. History of pacemaker implantation. 4. History degenerative joint disease, left hip replacement. 5. History of nicotine dependence. 6. Congestive heart failure acute exacerbation, acute on chronic systolic dysfunction. Ejection fraction 45 to 50%. RECOMMENDATIONS AND DISCUSSION: I recommend to continue current medication, continue symptomatic treatment. Continue to monitor. Continue with current medications. We will continue with diuretics, bronchodilators and further recommendations to follow. RONNI / ANTONIETTA: [id number] /
[2017-05-20 20:28] LABS: Glucose,Whole Blood 158 mg/dL (75-99)
[2017-05-20] MEDS: ALPRAZolam 0.5 MG TAB PO SCH (20:56)
[2017-05-21 07:04] LABS: INR 1.7 (<1.2); Prothrombin Time 16.8 sec (9.0-12.0)
[2017-05-21 07:06] LABS: Anisocytosis Slight; Basophils % (A) 0 %; CH 30.4; CHCM 30.9; Eosinophils % (A) 0 %; HCT 41.2 % (34.0-46.0); HDW 2.75; HGB 12.4 gm/dL (11.4-16.0); Hypochromasia Moderate; Luc # (Auto) 0.16; Luc % (Auto) 1; Lymphocytes # (A) 0.3 k/uL (1.0-4.8); Lymphocytes % (A) 3 %; MCH 29.8 pg (25.0-35.0); MCV 99.4 fL (80.0-100.0); Macrocytosis Slight; Mean Platelet Volume 8.4; Monocytes # (A) 0.6 k/uL (0-1.0); Monocytes % (A) 5 %; Neutrophils % (A) 91 %; RBC 4.15 m/uL (3.80-5.40); RDW 16.4 % (11.5-15.5); WBC 13.2 k/uL (3.8-10.6)
[2017-05-21 07:12] LABS: Anion Gap 8 mmol/L; Blood Urea Nitrogen 29 mg/dL (7-17); Calcium 8.3 mg/dL (8.4-10.2); Carbon Dioxide 32 mmol/L (22-30); Chloride 97 mmol/L (98-107); Glucose 97 mg/dL (74-99); Non-African American GFR(MDRD) >60 (>60 ml/min/1.73 sqM); Potassium 3.7 mmol/L (3.5-5.1); Sodium 137 mmol/L (137-145)
[2017-05-21] MEDS: IPRATROPIUM-ALBUTEROL 3 ML NEB INHALATION SCH ×4 (07:40→19:36)
[2017-05-21 08:03] LABS: Glucose,Whole Blood 98 mg/dL (75-99)
[2017-05-21] MEDS: INSULIN LISPRO (humaLOG) 300 UNIT/3 ML VIAL SQ SCH ×4 (08:32→20:41)
[2017-05-21] MEDS: methylPREDNISolone SOD SUCCI 40 MG/ML 1 ML VIAL IV SCH ×2 (09:37→16:10)
[2017-05-21] MEDS: METOPROLOL SUCCINATE (ER) 25 MG TAB.ER.24H PO SCH (09:37)
[2017-05-21] MEDS: FUROSEMIDE 10 MG/ML 4 ML VIAL IV SCH (09:37)
[2017-05-21] MEDS: LISINOPRIL 5 MG TAB PO SCH (09:37)
[2017-05-21] MEDS: SERTRALINE 50 MG TAB PO SCH (09:37)
[2017-05-21] MEDS: SPIRONOLACTONE 25 MG TAB PO SCH (09:37)
[2017-05-21] MEDS: POTASSIUM CHLORIDE ER 20 MEQ TAB.ER PO SCH (09:37)
[2017-05-21] MEDS: NITROGLYCERIN OINT 1 INCH/GM PACKET TOPICAL SCH ×4 (09:37→20:41)
--- NOTE | 2017-05-21 15:55 | P.PN ---
Subjective Progress Note Date: 05/21/17 This is an 86-year-old female patient with known history of COPD and congestion heart failure who presented to the hospital with progressive increased shortness of breath over the past few days. She has exertional dyspnea and worsening lower extremity edema. No significant cough or sputum production. No pleurisy. No hemoptysis. No chest pain. No change in mental status. The chest x-ray shows cardiac negative pulmonary vessel congestion. She has an elevated proBNP level of 6000. Her EKG showing a paced rhythm at the rate of 78. Is a chronic smoker in she was smoking half pack of cigarettes a day up to yesterday. She is on Coumadin and her INR on admission was at 1.7. Normal renal function. The rest of the electrodes are all within normal limits. The first set of troponins of 0.032. Noted the patient has undergone a previous TAVR at [facility]. She is on long-term anticoagulation probably related to previous history of atrial fibrillation current rhythm is paced. The patient was seen again today 05/19/2017 in follow-up on the regular medical floor. She is resting quite comfortably in bed. She is in no acute distress. She denies any worsening shortness of breath, cough or congestion. Her cough is dry currently. She denies any chest pain or palpitations. She is maintaining good O2 saturations in the 90s on room air. She's been afebrile. No chest pain. On 05/20/2017 the patient is less short of breath. The patient is been diuresed adequately. Her urine output has dropped and the patient is not producing as much urine output that she was producing earlier. No significant electrode disturbances. BN is at 26 with a creatinine of 0.7. Lower extremity edema is improved. Her shortness of breath is also improved. She is pulse oxing above 90% on room air. No chest pain. No other significant events overnight. The patient was receiving Lasix 40 mg IV push every 12 hours. She is also on in the correlation with warfarin and INR is at 1.9. On 05/21/2017 the patient is being seen in follow-up. She has no specific complaints. She is on oral Lasix 40 mg by mouth twice a day and I switch her to oral diuretics yesterday as the patient got adequately diuresed. She is also being tapered on her steroids and currently is on 40 mg of IV Solu-Medrol every 8 hours in addition to DuoNeb neb treatments around the clock. The plan is to further taper this patient to oral prednisone as of tomorrow. The patient is doing well. INR is 1.7. Renal function is stable with a creatinine of 0.7. She is ambulating. Objective - Vital Signs Vital signs: Vital Signs Temp 97.9 F 05/21/17 15:00 Pulse 80 05/21/17 15:16 Resp 18 05/21/17 15:00 BP 103/60 05/21/17 15:00 Pulse Ox 87 L 05/21/17 15:00 Intake & Output 05/20/17 05/21/17 05/21/17 18:59 06:59 18:59 Intake Total 560 Output Total 1 Balance 560 -1 Weight 67 kg Intake: Oral 560 Output: Stool 1 Other: Voiding Method Toilet Toilet Toilet # Voids 3 3 # Bowel Movements 0 - Exam Thin and frail elderly female patient on acute distress. Not using excessive muscle breathing.Head exam was generally normal. There was no scleral icterus or corneal arcus. Mucous membranes were moist.Neck was supple and without jugular venous distension, thyromegaly, or carotid bruits. Carotids were easily palpable bilaterally. There was no adenopathy. Lung sounds are diminished bilaterally along with some few bibasilar crackles.Cardiac exam revealed the PMI to be normally situated and sized. The rhythm was regular and no extrasystoles were noted during several minutes of auscultation. The first and second heart sounds were normal and physiologic splitting of the second heart sound was noted. There were a grade 2/6 systolic ejection murmur heard throughout the precordium.Abdominal exam revealed normal bowel sounds. The abdomen was soft, non-tender, and without masses, organomegaly, or appreciable enlargement of the abdominal aorta. Examination of the extremities revealed easily palpable radial, femoral and pedal pulses. There was no cyanosis, clubbing and there was trace lower extremity edema. Neurologically the patient is awake and alert and there is no focal neurological deficits. Skin examination shows no open wounds or ulcerations. Skeletal examination shows no deformities or active arthritis. - Labs CBC & Chem 7: 05/21/17 06:17 05/21/17 06:17 Labs: Abnormal Lab Results - Last 24 Hours (Table) 05/20/17 05/20/17 05/21/17 Range/Units 16:30 20:26 06:17 WBC (3.8-10.6) k/uL MCHC (31.0-37.0) g/dL RDW (11.5-15.5) % Plt Count (150-450) k/uL Neutrophils # (1.3-7.7) k/uL Lymphocytes # (1.0-4.8) k/uL PT 16.8 H (9.0-12.0) sec INR 1.7 H (<1.2) Chloride (98-107) mmol/L Carbon Dioxide (22-30) mmol/L BUN (7-17) mg/dL POC Glucose (mg/dL) 174 H 158 H (75-99) mg/dL Calcium (8.4-10.2) mg/dL 05/21/17 05/21/17 Range/Units 06:17 06:17 WBC 13.2 H (3.8-10.6) k/uL MCHC 30.0 L (31.0-37.0) g/dL RDW 16.4 H (11.5-15.5) % Plt Count 111 L (150-450) k/uL Neutrophils # 12.0 H (1.3-7.7) k/uL Lymphocytes # 0.3 L (1.0-4.8) k/uL PT (9.0-12.0) sec INR (<1.2) Chloride 97 L (98-107) mmol/L Carbon Dioxide 32 H (22-30) mmol/L BUN 29 H (7-17) mg/dL POC Glucose (mg/dL) (75-99) mg/dL Calcium 8.3 L (8.4-10.2) mg/dL Assessment and Plan Plan: Assessment 1 shortness of breath likely related to CHF exacerbation with a component of COPD. Predominant factor seems to be CHF at this point 2 worsening lower extremity edema secondary to CHF 3 history of valvular heart disease, probably aortic stenosis as the patient has a TAVR done a few years back 4 history of atrial fibrillation current rhythm is paced and the patient is on long-term anticoagulation with subtherapeutic PT/INR of 1.9 5 COPD 6 chronic smoking 7 biventricular pacemaker insertion, current rhythm is paced Plan The patient is currently on Lasix 40 mg by mouth twice a day. The patient be switched to prednisone burst taper as of tomorrow. Continue DuoNeb the last treatment [id number]. INR is at 1.7. The patient on oral anticoagulation. Discharge planning is in progress. Possible discharge in a.m.
[2017-05-21] MEDS: FUROSEMIDE 40 MG TAB PO SCH (16:09)
[2017-05-21] MEDS: WARFARIN 3 MG TAB PO SCH (17:46)
--- NOTE | 2017-05-21 17:46 | PN ---
PROGRESS NOTE DATE OF SERVICE: 05/21/2017 INTERVAL HISTORY: This 86-year-old woman was admitted with shortness of breath which is multifactorial is improving significantly. No chest pain. No palpitations. No fever. EXAM: Alert, oriented times three. Pulse is 70. Blood pressure 103/68, respiration 18, temperature 97.9, pulse ox 87% on room air. HEENT: Conjunctivae normal. Neck no jugular venous distention. Cardiovascular: S1, S2 muffled. Respiratory: Breath sounds diminished in the bases. Scattered rhonchi and crackles. Abdomen is soft, nontender. Legs are no edema. No swelling. Central nervous system: No focal deficits. LABORATORY DATA: WBC 13.2, and INR is 1.7. ASSESSMENT: 1. Shortness of breath. Multifactorial possible acute congestive heart failure acute exacerbation as well as chronic obstructive pulmonary disease acute exacerbation. 2. Congestive heart failure acute exacerbation with acute on chronic systolic dysfunction, ejection fraction 40-50%. 3. History of valvular heart disease with previous valve replacement and TAVR. 4. History of pacemaker implantation. 5. History of degenerative joint disease, left hip replacement. 6. History of nicotine dependence. RECOMMENDATIONS AND DISCUSSION: Recommend to continue current medications, management and symptomatic treatment. Taper the dosages, of the diuretics converted to p.o. Closely follow with Cardiology. Increase ambulation. Further recommendations to follow. MMODL / IJN: [id number] /
[2017-05-21 17:49] LABS: Glucose,Whole Blood 139 mg/dL (75-99)
[2017-05-21 20:41] LABS: Glucose,Whole Blood 227 mg/dL (75-99)
--- NOTE | 2017-05-21 22:49 | CONS ---
CONSULTATION This patient is feeling fairly well. Her breathing is improved. Her respirations are not labored. Blood pressure is 138/67 mmHg. First and second prosthetic sounds are well heard. Lungs are clinically clear to auscultation and percussion. The patient's chest x-ray shows mild congestive cardiac failure. Hemoglobin is 12.4. The patient's BUN is 29 and creatinine is 0.75. I will continue the current medications and patient will be discharged home in 24 to 48 hours. MMODL / IJN: [id number] /
[2017-05-21] MEDS: ALPRAZolam 0.5 MG TAB PO SCH (22:56)
[2017-05-22] MEDS: methylPREDNISolone SOD SUCCI 40 MG/ML 1 ML VIAL IV SCH ×2 (00:24→07:58)
[2017-05-22] MEDS: INSULIN LISPRO (humaLOG) 300 UNIT/3 ML VIAL SQ SCH ×4 (07:27→21:03)
[2017-05-22 07:38] LABS: Glucose,Whole Blood 117 mg/dL (75-99)
[2017-05-22] MEDS: METOPROLOL SUCCINATE (ER) 25 MG TAB.ER.24H PO SCH (07:59)
[2017-05-22] MEDS: FUROSEMIDE 40 MG TAB PO SCH ×2 (07:59→16:41)
[2017-05-22] MEDS: LISINOPRIL 5 MG TAB PO SCH (07:59)
[2017-05-22] MEDS: POTASSIUM CHLORIDE ER 20 MEQ TAB.ER PO SCH (07:59)
[2017-05-22] MEDS: NITROGLYCERIN OINT 1 INCH/GM PACKET TOPICAL SCH ×2 (07:59→12:52)
[2017-05-22] MEDS: SPIRONOLACTONE 25 MG TAB PO SCH (08:00)
[2017-05-22] MEDS: SERTRALINE 50 MG TAB PO SCH (08:00)
[2017-05-22] MEDS: ACETAMINOPHEN TAB 325 MG TAB PO PRN (08:27)
[2017-05-22] MEDS: IPRATROPIUM-ALBUTEROL 3 ML NEB INHALATION SCH ×4 (08:44→20:12)
[2017-05-22 09:12] LABS: Basophils % (A) 0 %; CH 29.4; CHCM 29.8; Eosinophils % (A) 0 %; HDW 2.61; HGB 13.5 gm/dL (11.4-16.0); Hypochromasia Marked; INR 1.8 (<1.2); Luc # (Auto) 0.21; Luc % (Auto) 2; Lymphocytes # (A) 0.3 k/uL (1.0-4.8); Lymphocytes % (A) 3 %; MCH 29.9 pg (25.0-35.0); MCHC 30.1 g/dL (31.0-37.0); MCV 99.5 fL (80.0-100.0); Macrocytosis Slight; Mean Platelet Volume 7.6; Monocytes # (A) 0.6 k/uL (0-1.0); Monocytes % (A) 5 %; Neutrophils # (A) 10.9 k/uL (1.3-7.7); Neutrophils % (A) 91 %; Prothrombin Time 17.5 sec (9.0-12.0); RBC 4.52 m/uL (3.80-5.40); RDW 15.4 % (11.5-15.5); WBC 12.1 k/uL (3.8-10.6); WBC (Perox) 11.49
[2017-05-22 09:19] LABS: Anion Gap 8 mmol/L; Blood Urea Nitrogen 30 mg/dL (7-17); Calcium 8.5 mg/dL (8.4-10.2); Carbon Dioxide 36 mmol/L (22-30); Chloride 94 mmol/L (98-107); Glucose 100 mg/dL (74-99); Non-African American GFR(MDRD) >60 (>60 ml/min/1.73 sqM); Potassium 3.7 mmol/L (3.5-5.1); Sodium 138 mmol/L (137-145)
--- NOTE | 2017-05-22 10:40 | P.PN ---
Subjective This is an 86-year-old female patient with known history of COPD and congestion heart failure who presented to the hospital with progressive increased shortness of breath over the past few days. She has exertional dyspnea and worsening lower extremity edema. No significant cough or sputum production. No pleurisy. No hemoptysis. No chest pain. No change in mental status. The chest x-ray shows cardiac negative pulmonary vessel congestion. She has an elevated proBNP level of 6000. Her EKG showing a paced rhythm at the rate of 78. Is a chronic smoker in she was smoking half pack of cigarettes a day up to yesterday. She is on Coumadin and her INR on admission was at 1.7. Normal renal function. The rest of the electrodes are all within normal limits. The first set of troponins of 0.032. Noted the patient has undergone a previous TAVR at [facility]. She is on long-term anticoagulation probably related to previous history of atrial fibrillation current rhythm is paced. The patient was seen again today 05/19/2017 in follow-up on the regular medical floor. She is resting quite comfortably in bed. She is in no acute distress. She denies any worsening shortness of breath, cough or congestion. Her cough is dry currently. She denies any chest pain or palpitations. She is maintaining good O2 saturations in the 90s on room air. She's been afebrile. No chest pain. On 05/20/2017 the patient is less short of breath. The patient is been diuresed adequately. Her urine output has dropped and the patient is not producing as much urine output that she was producing earlier. No significant electrode disturbances. BN is at 26 with a creatinine of 0.7. Lower extremity edema is improved. Her shortness of breath is also improved. She is pulse oxing above 90% on room air. No chest pain. No other significant events overnight. The patient was receiving Lasix 40 mg IV push every 12 hours. She is also on in the correlation with warfarin and INR is at 1.9. On 05/21/2017 the patient is being seen in follow-up. She has no specific complaints. She is on oral Lasix 40 mg by mouth twice a day and I switch her to oral diuretics yesterday as the patient got adequately diuresed. She is also being tapered on her steroids and currently is on 40 mg of IV Solu-Medrol every 8 hours in addition to DuoNeb neb treatments around the clock. The plan is to further taper this patient to oral prednisone as of tomorrow. The patient is doing well. INR is 1.7. Renal function is stable with a creatinine of 0.7. She is ambulating. The patient is seen again today 05/22/2017 in follow-up on the regular medical floor. She is currently resting quite comfortably in bed. She is awake and alert in no acute distress. She states her breathing is nearly back to her baseline. She is maintaining O2 saturations in the 90s on room air. She's been afebrile. Hemodynamically stable. Current INR 1.8. Her lower extremity edema has improved. Objective - Vital Signs Vital signs: Vital Signs Temp 98.0 F 05/22/17 07:00 Pulse 85 05/22/17 08:52 Resp 18 05/22/17 07:00 BP 147/71 05/22/17 07:00 Pulse Ox 90 L 05/22/17 07:00 Intake & Output 05/21/17 05/22/17 05/22/17 18:59 06:59 18:59 Intake Total 250 Output Total 2 Balance -2 250 Weight 63.5 kg Intake: Oral 250 Output: Stool 2 Other: Voiding Method Toilet Toilet # Voids 3 1 - Exam Thin and frail elderly female patient on acute distress. Not using excessive muscle breathing.Head exam was generally normal. There was no scleral icterus or corneal arcus. Mucous membranes were moist.Neck was supple and without jugular venous distension, thyromegaly, or carotid bruits. Carotids were easily palpable bilaterally. There was no adenopathy. Lung sounds are diminished bilaterally along with some few bibasilar crackles.Cardiac exam revealed the PMI to be normally situated and sized. The rhythm was regular and no extrasystoles were noted during several minutes of auscultation. The first and second heart sounds were normal and physiologic splitting of the second heart sound was noted. There were a grade 2/6 systolic ejection murmur heard throughout the precordium.Abdominal exam revealed normal bowel sounds. The abdomen was soft, non-tender, and without masses, organomegaly, or appreciable enlargement of the abdominal aorta. Examination of the extremities revealed easily palpable radial, femoral and pedal pulses. There was no cyanosis, clubbing and there was +1 pitting edema. Neurologically the patient is awake and alert and there is no focal neurological deficits. Skin examination shows no open wounds or ulcerations. Skeletal examination shows no deformities or active arthritis. - Labs CBC & Chem 7: 05/22/17 08:08 05/22/17 08:08 Labs: Abnormal Lab Results - Last 24 Hours (Table) 05/21/17 05/21/17 05/22/17 Range/Units 17:17 20:13 07:08 WBC (3.8-10.6) k/uL MCHC (31.0-37.0) g/dL Plt Count (150-450) k/uL Neutrophils # (1.3-7.7) k/uL Lymphocytes # (1.0-4.8) k/uL PT (9.0-12.0) sec INR (<1.2) Chloride (98-107) mmol/L Carbon Dioxide (22-30) mmol/L BUN (7-17) mg/dL Glucose (74-99) mg/dL POC Glucose (mg/dL) 139 H 227 H 117 H (75-99) mg/dL 05/22/17 05/22/17 05/22/17 Range/Units 08:08 08:08 08:08 WBC 12.1 H (3.8-10.6) k/uL MCHC 30.1 L (31.0-37.0) g/dL Plt Count 113 L (150-450) k/uL Neutrophils # 10.9 H (1.3-7.7) k/uL Lymphocytes # 0.3 L (1.0-4.8) k/uL PT 17.5 H (9.0-12.0) sec INR 1.8 H (<1.2) Chloride 94 L (98-107) mmol/L Carbon Dioxide 36 H (22-30) mmol/L BUN 30 H (7-17) mg/dL Glucose 100 H (74-99) mg/dL POC Glucose (mg/dL) (75-99) mg/dL Assessment and Plan Plan: Assessment 1 acute exacerbation of chronic obstructive pulmonary disease 2 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 4 history of atrial fibrillation current rhythm is paced and the patient is on long-term anticoagulation with subtherapeutic PT/INR of 1.8 5 COPD 6 chronic smoking 7 biventricular pacemaker insertion, current rhythm is paced 8 history of valvular heart disease, probably aortic stenosis as the patient has a TAVR done a few years back 9 moderate pulmonary hypertension with an RVSP of 51 mmHg. Plan: The patient was seen and evaluated by Dr. Mario. She is quite stable from the pulmonary standpoint. We'll continue with her current medications. She remains on Lasix 40 mg po every 12 hours. We'll convert her IV Solu-Medrol to prednisone taper. She is again educated regarding the importance of complete smoking cessation. We'll continue to follow. I, the cosigning physician, performed a history & physical examination of the patient. Lungs sounds continue with few basilar crackles. Diminished. I discussed the assessment and plan with my nurse practitioner, Carolyn Del Angel. I reviewed her note and agree with the documented findings and plan of care.
[2017-05-22 11:46] LABS: Glucose,Whole Blood 141 mg/dL (75-99)
--- NOTE | 2017-05-22 14:43 | P.PN ---
Subjective Progress Note Date: 05/22/17 Progress note being dictated for Dr. Mo 05/19/17 Interval history: This is an 86-year-old female admitted with acute CHF exacerbation, COPD exacerbation and multiple other medical issues. Maintained on IV Lasix, nebulized bronchodilators, IV steroids with breathing improving. Maintaining O2 sats of 94% on room air. Denies chest pain, palpitations or increasing shortness of breath. Anticoagulated on Coumadin with current INR 1.5. Repeat echo pending. Afebrile 05/22/2017 maintained to oral Lasix, diuresing well with 24-hour I&O reflecting a decreased weight. Extremity edema improved. Breathing continues to improve. Maintains O2 saturations in the 90s on room air at rest but O2 saturation on room air after exertion decreased to 85%. Denies chest pain, palpitations. Afebrile. INR 1.8. Objective - Vital Signs Vital signs: Vital Signs Temp 98.0 F 05/22/17 07:00 Pulse 86 05/22/17 12:35 Resp 18 05/22/17 07:00 BP 147/71 05/22/17 07:00 Pulse Ox 97 05/22/17 09:13 Intake & Output 05/21/17 05/22/17 05/22/17 18:59 06:59 18:59 Intake Total 250 Output Total 2 Balance -2 250 Weight 63.5 kg Intake: Oral 250 Output: Stool 2 Other: Voiding Method Toilet Toilet # Voids 3 1 - Exam PHYSICAL EXAM: VITAL SIGNS: As above GENERAL: Sitting up at side of bed, no acute distress HEENT: Conjunctivae normal. eyes normal. Oral mucosa moist. NECK: No JVD. No thyroid enlargement. No LNs CARDIOVASCULAR: S1, S2 muffled. Positive systolic murmur RESPIRATION: Breath sounds diminished in the bases. Scattered rhonchi , no crackles. No bronchial breathing. ABDOMEN: Soft, nontender . No guarding. no masses palpable.Bowel sounds heard. LEGS: No edema. no swelling PSYCHIATRY: Alert and oriented -3, mood and affect normal. NERVOUS SYSTEM: Cranial N 2-12 grossly normal. Moves all 4 limbs. Diffuse weakness No focal deficits. No sensory deficit. Skin: no ulcer no rash Joints: No active swelling. No inflammation. Lymphatic system. No LN neck axilla or groin. - Labs CBC & Chem 7: 10/16/17 08:08 05/22/17 08:08 Labs: Abnormal Lab Results - Last 24 Hours (Table) 05/21/17 05/21/17 05/22/17 Range/Units 17:17 20:13 07:08 WBC (3.8-10.6) k/uL MCHC (31.0-37.0) g/dL Plt Count (150-450) k/uL Neutrophils # (1.3-7.7) k/uL Lymphocytes # (1.0-4.8) k/uL PT (9.0-12.0) sec INR (<1.2) Chloride (98-107) mmol/L Carbon Dioxide (22-30) mmol/L BUN (7-17) mg/dL Glucose (74-99) mg/dL POC Glucose (mg/dL) 139 H 227 H 117 H (75-99) mg/dL 05/22/17 05/22/17 05/22/17 Range/Units 08:08 08:08 08:08 WBC 12.1 H (3.8-10.6) k/uL MCHC 30.1 L (31.0-37.0) g/dL Plt Count 113 L (150-450) k/uL Neutrophils # 10.9 H (1.3-7.7) k/uL Lymphocytes # 0.3 L (1.0-4.8) k/uL PT 17.5 H (9.0-12.0) sec INR 1.8 H (<1.2) Chloride 94 L (98-107) mmol/L Carbon Dioxide 36 H (22-30) mmol/L BUN 30 H (7-17) mg/dL Glucose 100 H (74-99) mg/dL POC Glucose (mg/dL) (75-99) mg/dL 05/22/17 Range/Units 11:36 WBC (3.8-10.6) k/uL MCHC (31.0-37.0) g/dL Plt Count (150-450) k/uL Neutrophils # (1.3-7.7) k/uL Lymphocytes # (1.0-4.8) k/uL PT (9.0-12.0) sec INR (<1.2) Chloride (98-107) mmol/L Carbon Dioxide (22-30) mmol/L BUN (7-17) mg/dL Glucose (74-99) mg/dL POC Glucose (mg/dL) 141 H (75-99) mg/dL Assessment and Plan Plan: 1. Shortness of breath, multifactorial, acute systolic CHF exacerbation as well as acute COPD exacerbation. 2. [ Valvular heart disease, history of TAVR with previous valve replacement]. 3. [ History of Permanent pacemaker implantation]. 4. Chronic persistent atrial fibrillation 5. [Nicotine dependence Plan: Continue on current medication regime, nebulized bronchodilators, steroids , monitoring and symptomatic treatment. Continue ambulating in hallway 3 times a day with assistance, continue on oral diuretics, hoping to be able to discharge patient home without oxygen.Smoking cessation readdressed. Daily Aggressive pulmonary toileting. Follow closely with pulmonary. Daughter updated via phone on progress, plan a care and pending discharge. Further recommendations to follow. The impression and plan of care has been dictated as directed. : I performed a history and examination of this patient, discussed the same with the dictator. I agree with the dictator's note ,documented as a scribe. Any additional findings or plans will be noted.
[2017-05-22 17:28] LABS: Glucose,Whole Blood 128 mg/dL (75-99)
[2017-05-22] MEDS: WARFARIN 1.5 MG TAB PO SCH (19:44)
[2017-05-22 20:19] LABS: Glucose,Whole Blood 150 mg/dL (75-99)
[2017-05-22] MEDS: ALPRAZolam 0.5 MG TAB PO SCH (21:03)
[2017-05-23 07:14] LABS: Glucose,Whole Blood 93 mg/dL (75-99)
[2017-05-23] MEDS: IPRATROPIUM-ALBUTEROL 3 ML NEB INHALATION SCH ×3 (07:29→15:37)
[2017-05-23 08:16] LABS: Basophils % (A) 0 %; CH 29.7; CHCM 29.1; Eosinophils % (A) 0 %; HCT 46.1 % (34.0-46.0); HDW 2.56; HGB 13.1 gm/dL (11.4-16.0); Hypochromasia Marked; Luc # (Auto) 0.32; Luc % (Auto) 3; Lymphocytes # (A) 0.8 k/uL (1.0-4.8); Lymphocytes % (A) 7 %; MCH 29.3 pg (25.0-35.0); MCHC 28.5 g/dL (31.0-37.0); MCV 102.8 fL (80.0-100.0); Macrocytosis Slight; Mean Platelet Volume 7.4; Monocytes # (A) 0.8 k/uL (0-1.0); Monocytes % (A) 7 %; Neutrophils # (A) 8.8 k/uL (1.3-7.7); Neutrophils % (A) 82 %; RBC 4.49 m/uL (3.80-5.40); RDW 15.3 % (11.5-15.5); WBC 10.7 k/uL (3.8-10.6); WBC (Perox) 10.75
[2017-05-23 08:27] LABS: INR 2.1 (<1.2); Prothrombin Time 19.8 sec (9.0-12.0)
[2017-05-23 08:33] LABS: Anion Gap 8 mmol/L; Blood Urea Nitrogen 29 mg/dL (7-17); Calcium 8.4 mg/dL (8.4-10.2); Carbon Dioxide 31 mmol/L (22-30); Chloride 97 mmol/L (98-107); Glucose 70 mg/dL (74-99); Non-African American GFR(MDRD) >60 (>60 ml/min/1.73 sqM); Sodium 136 mmol/L (137-145)
[2017-05-23] MEDS ORDERED: predniSONE 20 MG TAB PO SCH (09:00)
[2017-05-23] MEDS: INSULIN LISPRO (humaLOG) 300 UNIT/3 ML VIAL SQ SCH ×2 (09:09→11:48)
[2017-05-23] MEDS: POTASSIUM CHLORIDE ER 20 MEQ TAB.ER PO SCH (09:22)
[2017-05-23] MEDS: FUROSEMIDE 40 MG TAB PO SCH ×2 (09:22→15:56)
[2017-05-23] MEDS: METOPROLOL SUCCINATE (ER) 25 MG TAB.ER.24H PO SCH (09:23)
[2017-05-23] MEDS: LISINOPRIL 5 MG TAB PO SCH (09:23)
[2017-05-23] MEDS: SERTRALINE 50 MG TAB PO SCH (09:23)
[2017-05-23] MEDS: SPIRONOLACTONE 25 MG TAB PO SCH (09:23)
[2017-05-23 11:29] LABS: Glucose,Whole Blood 94 mg/dL (75-99)
--- NOTE | 2017-05-23 14:05 | P.PN ---
Subjective Progress Note Date: 05/23/17 Principal diagnosis: Acute exacerbation of chronic obstructive pulmonary disease, acute exacerbation of systolic and diastolic congestive heart failure This is an 86-year-old female patient with known history of COPD and congestion heart failure who presented to the hospital with progressive increased shortness of breath over the past few days. She has exertional dyspnea and worsening lower extremity edema. No significant cough or sputum production. No pleurisy. No hemoptysis. No chest pain. No change in mental status. The chest x-ray shows cardiac negative pulmonary vessel congestion. She has an elevated proBNP level of 6000. Her EKG showing a paced rhythm at the rate of 78. Is a chronic smoker in she was smoking half pack of cigarettes a day up to yesterday. She is on Coumadin and her INR on admission was at 1.7. Normal renal function. The rest of the electrodes are all within normal limits. The first set of troponins of 0.032. Noted the patient has undergone a previous TAVR at [facility]. She is on long-term anticoagulation probably related to previous history of atrial fibrillation current rhythm is paced. The patient was seen again today 05/19/2017 in follow-up on the regular medical floor. She is resting quite comfortably in bed. She is in no acute distress. She denies any worsening shortness of breath, cough or congestion. Her cough is dry currently. She denies any chest pain or palpitations. She is maintaining good O2 saturations in the 90s on room air. She's been afebrile. No chest pain. On 05/20/2017 the patient is less short of breath. The patient is been diuresed adequately. Her urine output has dropped and the patient is not producing as much urine output that she was producing earlier. No significant electrode disturbances. BN is at 26 with a creatinine of 0.7. Lower extremity edema is improved. Her shortness of breath is also improved. She is pulse oxing above 90% on room air. No chest pain. No other significant events overnight. The patient was receiving Lasix 40 mg IV push every 12 hours. She is also on in the correlation with warfarin and INR is at 1.9. On 05/21/2017 the patient is being seen in follow-up. She has no specific complaints. She is on oral Lasix 40 mg by mouth twice a day and I switch her to oral diuretics yesterday as the patient got adequately diuresed. She is also being tapered on her steroids and currently is on 40 mg of IV Solu-Medrol every 8 hours in addition to DuoNeb neb treatments around the clock. The plan is to further taper this patient to oral prednisone as of tomorrow. The patient is doing well. INR is 1.7. Renal function is stable with a creatinine of 0.7. She is ambulating. The patient is seen again today 05/22/2017 in follow-up on the regular medical floor. She is currently resting quite comfortably in bed. She is awake and alert in no acute distress. She states her breathing is nearly back to her baseline. She is maintaining O2 saturations in the 90s on room air. She's been afebrile. Hemodynamically stable. Current INR 1.8. Her lower extremity edema has improve. On 05/23/2017 patient is reevaluated. She is resting in bed she denies any distress. She did desaturate to 88% on room air this morning, home oxygen will be ordered for her post discharge. She states her breathing is much improved today, no significant cough or sputum production. Lung sounds good air entry bilaterally with a few fine crackles at the bases. Chest x-ray from 05/20/2017 showed changes consistent with COPD CHF and bilateral effusions. Labs have been reviewed, no leukocytosis. Patient continues on her home dose of Coumadin with INR is 2.1 for her history of A. fib and previous TAVR. Patient is on oral prednisone, DuoNeb nebulized treatments and oral Lasix twice a day. Patient does not want a follow-up with the lung specialist locally post discharge as [place]. Patient is clear for discharge from pulmonary standpoint Objective - Vital Signs Vital signs: Vital Signs Temp 97.5 F L 05/23/17 07:00 Pulse 72 05/23/17 11:46 Resp 16 05/23/17 07:00 BP 151/74 05/23/17 07:00 Pulse Ox 97 05/23/17 12:48 Intake & Output 05/22/17 05/23/17 05/23/17 18:59 06:59 18:59 Intake Total 480 Balance 480 Weight 63 kg Intake: Oral 480 Other: Voiding Method Toilet Toilet # Voids 4 1 - Exam Thin and frail elderly female patient on acute distress. Not using excessive muscle breathing.Head exam was generally normal. There was no scleral icterus or corneal arcus. Mucous membranes were moist.Neck was supple and without jugular venous distension, thyromegaly, or carotid bruits. Carotids were easily palpable bilaterally. There was no adenopathy. Lung sounds are diminished bilaterally along with some few bibasilar crackles.Cardiac exam revealed the PMI to be normally situated and sized. The rhythm was regular and no extrasystoles were noted during several minutes of auscultation. The first and second heart sounds were normal and physiologic splitting of the second heart sound was noted. There were a grade 2/6 systolic ejection murmur heard throughout the precordium.Abdominal exam revealed normal bowel sounds. The abdomen was soft, non-tender, and without masses, organomegaly, or appreciable enlargement of the abdominal aorta. Examination of the extremities revealed easily palpable radial, femoral and pedal pulses. There was no cyanosis, clubbing and there was +1 pitting edema. Neurologically the patient is awake and alert and there is no focal neurological deficits. Skin examination shows no open wounds or ulcerations. Skeletal examination shows no deformities or active arthritis. - Labs CBC & Chem 7: 05/23/17 07:46 05/23/17 07:46 Labs: Abnormal Lab Results - Last 24 Hours (Table) 05/22/17 05/22/17 05/23/17 Range/Units 17:25 20:18 07:46 WBC (3.8-10.6) k/uL Hct (34.0-46.0) % MCV (80.0-100.0) fL MCHC (31.0-37.0) g/dL Plt Count (150-450) k/uL Neutrophils # (1.3-7.7) k/uL Lymphocytes # (1.0-4.8) k/uL PT 19.8 H (9.0-12.0) sec INR 2.1 H (<1.2) Sodium (137-145) mmol/L Chloride (98-107) mmol/L Carbon Dioxide (22-30) mmol/L BUN (7-17) mg/dL Glucose (74-99) mg/dL POC Glucose (mg/dL) 128 H 150 H (75-99) mg/dL 05/23/17 05/23/17 Range/Units 07:46 07:46 WBC 10.7 H (3.8-10.6) k/uL Hct 46.1 H (34.0-46.0) % MCV 102.8 H (80.0-100.0) fL MCHC 28.5 L (31.0-37.0) g/dL Plt Count 100 L (150-450) k/uL Neutrophils # 8.8 H (1.3-7.7) k/uL Lymphocytes # 0.8 L (1.0-4.8) k/uL PT (9.0-12.0) sec INR (<1.2) Sodium 136 L (137-145) mmol/L Chloride 97 L (98-107) mmol/L Carbon Dioxide 31 H (22-30) mmol/L BUN 29 H (7-17) mg/dL Glucose 70 L (74-99) mg/dL POC Glucose (mg/dL) (75-99) mg/dL Assessment and Plan Plan: Assessment and Plan Plan: Assessment 1 acute exacerbation of chronic obstructive pulmonary disease, improved 2 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 4 history of atrial fibrillation current rhythm is paced and the patient is on long-term anticoagulation with subtherapeutic PT/INR of 2.1 5 COPD 6 chronic smoking 7 biventricular pacemaker insertion, current rhythm is paced 8 history of valvular heart disease, probably aortic stenosis as the patient has a TAVR done a few years back 9 moderate pulmonary hypertension with an RVSP of 51 mmHg. Plan: The patient was seen and evaluated by Dr. Mario. She is quite stable from the pulmonary standpoint. We'll continue with her current medications. She remains on Lasix 40 mg po every 12 hours. Continue on oral prednisone and DuoNeb treatments. She can be cleared for discharge home today with home oxygen. She is again educated on smoking cessation. Patient [place], therefore she does not want to be established with a lung specialist locally at this time. I performed a history & physical examination of the patient and discussed their management with my nurse practitioner, Cely Castro. I reviewed the nurse practitioner's note and agree with the documented findings and plan of care.
[2017-05-23] MEDS: ACETAMINOPHEN TAB 325 MG TAB PO PRN (14:30)
--- NOTE | 2017-05-23 15:30 | P.DS ---
Providers Date of admission: 05/18/17 12:40 Expected date of discharge: 05/23/17 Attending physician: Zakiya Paez Consults: 05/18/17 12:40 Consult Physician Routine Consulting Provider: Bill Haddad Consult Reason/Comments: dyspnea Do you want consulting provider notified?: [facility] Primary care physician: [employer] Course: Final Diagnoses: 1. Shortness of breath, multifactorial, acute systolic CHF exacerbation as well as acute COPD exacerbation. 2. Valvular heart disease, history of TAVR with previous valve replacement]. 3. History of Permanent pacemaker implantation]. 4. Chronic persistent atrial fibrillation 5. Nicotine dependence Hospital course:This is an 86-year-old female admitted with acute CHF exacerbation, COPD exacerbation and multiple other medical issues. Evaluated by pulmonary and cardiology. Maintained on IV Lasix, nebulized bronchodilators, IV steroids with significant clinical improvement. Unable to wean off completely oxygen. O2 sat on room air after ambulation 86%, patient will be sent home with 2 L nasal cannula O2 as well as DuoNeb 4 times a day and every 4 hours when necessary shortness of breath related to acute on chronic COPD exacerbation. Cleared by consults for discharge. Patient is being discharged home today in a stable condition. Patient will be moving in with daughter who lives in [place]. The impression and plan of care has been dictated as directed. : I performed a history and examination of this patient, discussed the same with the dictator. I agree with the dictator's note ,documented as a scribe. Any additional findings or plans will be noted. Patient Condition at Discharge: Stable Plan - Discharge Summary New Discharge Prescriptions: New Acetaminophen Tab [Tylenol] 650 mg PO Q6HR PRN tab PRN Reason: Fever And/ Or Pain Furosemide [Lasix] 40 mg PO BID@0900,1600 #60 tab Lisinopril [Zestril] 5 mg PO DAILY #30 tab predniSONE 10 mg PO DIRECTED #30 tab Spironolactone [Aldactone] 25 mg PO DAILY #30 tab Ipratropium-Albuterol Nebulize [Duoneb 0.5 mg-3 mg/3 ml Soln] 3 ml INHALATION RT-QID #120 neb Continue ALPRAZolam [Xanax] 0.5 mg PO DAILY Potassium Chloride [Klor-Con 20] 20 meq PO DAILY rOPINIRole HCL [Requip] 0.25 mg PO HS Sertraline HCl [Zoloft] 50 mg PO DAILY Metoprolol Succinate (ER) [Toprol XL] 25 mg PO DAILY Warfarin [Coumadin] 3 mg PO SUTUTHSA Warfarin [Coumadin] 1.5 mg PO MOWEFR Discontinued Furosemide [Lasix] 20 mg PO BID Lisinopril [Zestril] 2.5 mg PO DAILY Discharge Medication List ALPRAZolam [Xanax] 0.5 mg PO DAILY 11/25/16 [History] Potassium Chloride [Klor-Con 20] 20 meq PO DAILY 11/25/16 [History] Sertraline HCl [Zoloft] 50 mg PO DAILY 11/25/16 [History] rOPINIRole HCL [Requip] 0.25 mg PO HS 11/25/16 [History] Metoprolol Succinate (ER) [Toprol XL] 25 mg PO DAILY 05/18/17 [History] Warfarin [Coumadin] 1.5 mg PO MOWEFR 05/18/17 [History] Warfarin [Coumadin] 3 mg PO SUTUTHSA 05/18/17 [History] Acetaminophen Tab [Tylenol] 650 mg PO Q6HR PRN tab 05/23/17 [Rx] Furosemide [Lasix] 40 mg PO BID@0900,1600 #60 tab 05/23/17 [Rx] Ipratropium-Albuterol Nebulize [Duoneb 0.5 mg-3 mg/3 ml Soln] 3 ml INHALATION RT -QID #120 neb 05/23/17 [Rx] Lisinopril [Zestril] 5 mg PO DAILY #30 tab 05/23/17 [Rx] Spironolactone [Aldactone] 25 mg PO DAILY #30 tab 05/23/17 [Rx] predniSONE 10 mg PO DIRECTED #30 tab 05/23/17 [Rx] Follow up Appointment(s)/Referral(s): Dolphin TrainerDr. Rylee [Other] - 2 Weeks Oncology CoordinatorDr. Rylee [Other] - 1 Week [facility], [NON-STAFF] - As Needed William Delgadillo MD [Primary Care Provider] - 05/30/17 2:15 pm Ambulatory/Diagnostic Orders: Prothrombin Time INR [LAB.AMB] Time Frame: 3 Days, Location: Determined By Patient Patient Instructions/Handouts: Spironolactone (By mouth), Lisinopril (By mouth) , Furosemide (By mouth), Prednisone (By mouth), Heart Failure (DC), COPD ( Chronic Obstructive Pulmonary Disease) (DC) Activity/Diet/Wound Care/Special Instructions[facility] and then to your house - [phone] O2 2lNC No smoking DIet: "CHF"DIET Discharge Disposition: HOME WITH HOME HEALTH SERVICES
[2017-05-23 15:34] VITALS: BP 120/58; PULSE 71; RESP 18; TEMP 98.2
[2017-05-23 17:09] LABS: Glucose,Whole Blood 151 mg/dL (75-99)
== END 2017-05-23 18:30 | disposition home health service (06) | DRG 291 ==
LOC: EC 10:47 → 6SEL 12:40 → 5MS5E 05-20 20:23
PROVIDERS: ADMIT Hospitalist; ATTEND Hospitalist
DX: I11.0 Hypertensive heart disease with heart failure (principal); J96.01 Acute respiratory failure with hypoxia; J44.1 Chronic obstructive pulmonary disease with (acute) exacerbation; I48.1 Persistent atrial fibrillation; I50.23 Acute on chronic systolic (congestive) heart failure; I27.20 Pulmonary hypertension, unspecified; I35.0 Nonrheumatic aortic (valve) stenosis; E78.5 Hyperlipidemia, unspecified; Z66 Do not resuscitate; F17.210 Nicotine dependence, cigarettes, uncomplicated; M19.91 Primary osteoarthritis, unspecified site; Z79.01 Long term (current) use of anticoagulants; Z79.899 Other long term (current) drug therapy; Z95.2 Presence of prosthetic heart valve; Z95.0 Presence of cardiac pacemaker; Z96.642 Presence of left artificial hip joint; Z98.41 Cataract extraction status, right eye; Z98.42 Cataract extraction status, left eye; Z88.0 Allergy status to penicillin; Z82.49 Family history of ischemic heart disease and other diseases of the circulatory system
CPT/HCPCS: 36415; 71020; 80048; 80053; 82550; 82553; 83880; 84484; 85025; 85610; 85730; 93005; 93306; 94640; 94760; 96374; 96375; 99285